=== PATIENT | female | born 1990 | race Caucasian/White ===

== ENCOUNTER 2017-06-18 07:23 | Inpatient (IN) | payer OTHER ==
[~2017-06-18] VITALS: Ht 162.6 cm; Wt 81.0 kg
[~2017-06-18 07:23] MED LIST: CLON0.5T3 PO; RISP3TAB12 PO
[2017-06-18] MEDS ORDERED: MoRPHine SULFATE 10 MG/ML CARP/VIAL IM STA (07:38)
--- NOTE | 2017-06-18 08:07 | DIAGNOSTIC IMAGING REPORT ---
LUMBAR SPINE 2 OR 3 VIEWS CLINICAL HISTORY: lower back pain COMPARISON STUDY: No previous studies for comparison. FINDINGS: No fractures or subluxations are visualized. There is a possible transitional vertebra. There is mild fecal retention. No destructive lesions are evident on conventional radiographic evaluation. IMPRESSION: 1. No fractures or subluxations identified 2. Mild fecal retention Electronically signed by: Anshul Sharpe M.D. 06/18/2017 8:06 AM Dictated Date/Time: 06/18/2017 8:05 AM
[2017-06-18] MEDS ORDERED: CALC500C70 PO (08:33)
[2017-06-18] MEDS ORDERED: LAMO100T16 PO (08:33)
[2017-06-18] MEDS ORDERED: CYCL10TA6 PO (08:33)
[2017-06-18] MEDS ORDERED: LISD50CA4 PO (08:33)
[2017-06-18] MEDS ORDERED: SYN50 PO (08:33)
[2017-06-18] MEDS ORDERED: SODIUM CHLORIDE 0.9% 1000ML 1,000 ML IV STA (08:46)
[2017-06-18 08:53] LABS: BASO % 0.1 %; BASO ABS # 0.02 K/uL (0-0.2); EOS % 0.4 %; EOS ABS # 0.06 K/uL (0-0.5); HEMATOCRIT 35.2 % (37-47); HEMOGLOBIN 11.5 g/dL (12.0-16.0); IG# 0.05 K/uL (0.00-0.02); LYMPH % 3.7 %; LYMPH ABS # 0.58 K/uL (1.2-3.4); MEAN CELL VOLUME 89.8 fL (80-100); MEAN CORPUSCULAR HEMOGLOBIN 29.3 pg (25-34); MEAN CORPUSCULAR HGB CONC 32.7 g/dl (32-36); MEAN PLATELET VOLUME 9.9 fL (7.4-10.4); MONO % 10.4 %; MONO ABS # 1.65 K/uL (0.11-0.59); NEUT % 85.1 %; NEUT ABS # 13.47 K/uL (1.4-6.5); PLATELET COUNT 274 K/uL (130-400); RED CELL DISTRIBUTION WIDTH CV 12.8 % (11.5-14.5); RED CELL DISTRIBUTION WIDTH SD 41.9 fL (36.4-46.3); WHITE BLOOD COUNT 15.83 K/uL (4.8-10.8)
[2017-06-18] MEDS ORDERED: OPTIRAY 320 IV PRN (09:00)
[2017-06-18 09:12] LABS: ALBUMIN 3.4 gm/dl (3.4-5.0); ALT/SGPT 15 U/L (12-78); BLOOD UREA NITROGEN 11 mg/dl (7-18); CARBON DIOXIDE 26 mmol/L (21-32); GLUCOSE 77 mg/dl (70-99); LIPASE 87 U/L (73-393); POTASSIUM 3.8 mmol/L (3.5-5.1); SODIUM 135 mmol/L (136-145)
[2017-06-18 09:15] LABS: ALKALINE PHOSPHATASE 56 U/L (45-117); AST/SGOT 11 U/L (15-37); TOTAL PROTEIN 7.3 gm/dl (6.4-8.2)
[2017-06-18] MEDS ORDERED: CEFTRIAXONE SOD INJ 1 GM ADDVIAL IV STA (10:00)
[2017-06-18] MEDS ORDERED: MoRPHine SULFATE 10 MG/ML CARP/VIAL IV STA (10:55)
--- NOTE | 2017-06-18 11:04 | DIAGNOSTIC IMAGING REPORT ---
CT ABD/PELVIS IV CONTRAST ONLY CLINICAL HISTORY: Severe right flank pain with urinary tract infection. COMPARISON STUDY: None. TECHNIQUE: Following the IV administration of mL of Optiray-320, CT scan of the abdomen and pelvis was performed from the lung bases to the proximal femurs. Images are reviewed in the axial, sagittal, and coronal planes. IV contrast was administered without complication. A dose lowering technique was utilized adhering to the principles of ALARA. CT DOSE: 1035.98 mGycm FINDINGS: Lower chest: The heart is normal in size and configuration, without pericardial effusion. The lung bases and pleural spaces are clear. Liver: No focal hepatic masses are visualized. There is minimal prominence the central intrahepatic ducts. The common bile duct is borderline dilated measuring 7 mm. Gallbladder: Unremarkable. Spleen: Normal in size and attenuation. Pancreas: Unremarkable. Adrenal glands: Unremarkable. Kidneys: There is a 5 mm right renal hypodensity likely representing a cyst. There is no significant hydronephrosis. There is mild uroepithelial enhancement most pronounced involving the right ureter. This is likely secondary to infection. Pelvic basin calcifications are felt to represent phleboliths. No ureteral calculi are visualized. There are no perinephric fluid collections. Bowel: There are no transition zones indicate bowel obstruction. There is mild fecal retention. There is no acute diverticulitis. There are no findings to indicate acute appendicitis. Peritoneum: There is a small amount of free pelvic fluid present. There is no free intraperitoneal air. Vasculature: The abdominal aorta is normal in course and caliber. Adenopathy: None. Pelvic viscera: There is an indwelling IUD. Skeletal structures: No destructive osseous lesions are seen. IMPRESSION: 1. No evidence of bowel obstruction. No evidence of free air 2. No evidence of acute appendicitis. No evidence of acute diverticulitis 3. Fecal retention 4. Mild uroepithelial enhancement most pronounced involving the right ureter. This likely is secondary to an upper tract infection. Clinical correlation follow-up is advocated 5. Mild prominence the central intrahepatic biliary ducts. Borderline dilatation of the common bile duct 6. Small amount of free fluid in the pelvis slightly greater than expected for physiologic free fluid 7. Indwelling IUD Electronically signed by: Anshul Sharpe M.D. 06/18/2017 11:02 AM Dictated Date/Time: 06/18/2017 10:53 AM
[2017-06-18 11:41] VITALS: O2SAT 96; Ht 162.6 cm; Wt 81.0 kg
[2017-06-18] MEDS ORDERED: HYDROmorphone INJ 1 MG/ML SYR IV STA (12:48)
--- NOTE | 2017-06-18 13:38 | EMERGENCY ROOM VISIT NOTE ---
History Report prepared by Randy: Romeo Adams Under the Supervision of: Dr. Dudley Soto D.O. First contact with patient: 07:31 Chief Complaint: BACK PAIN Stated Complaint: LOW BACK PAIN History of Present Illness The patient is a 26 year old female who presents to the Emergency Room with complaints of worsening right sided lower back pain that began on Thursday, 4 days ago. The patient states describes her pain as "severe." She notes that her pain started on Thursday while she was sitting at work. When she stood up from her desk after sitting for a long time she felt the pain worsen. Yesterday the pain was bilateral across both sides of her lower back, but today it is localized to the right side. Twisting, turning, and bending make her pain worse. She was seen by S yesterday, and was prescribed a muscle relaxer. This has not improved her symptoms. The patient denies any other headache, change in vision, fevers, chest pain, shortness of breath, nausea, vomiting, diarrhea, pain with urination, and melena. 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 A total of 10 systems reviewed and were otherwise negative. Past Medical & Surgical Medical Problems: (1) Bipolar disorder (2) Mitral valve prolapse Family History No pertinent family history Social History Smoking Status: Never Smoker Marital Status: single Housing Status: lives with roommate Current/Historical Medications Scheduled Calcium/Vitamin D (Os-Angel 500 Plus D), 1 TAB PO BID Lamotrigine (Lamictal), 100 MG PO DAILY Levonorgestrel (Iud) (Mirena), 20 MCG INT UTER UD Levothyroxine Sodium (Synthroid), 50 MCG PO DAILY Lisdexamfetamine Dimesylate (Vyvanse), 50 MG PO DAILY [place] Carbonate ([place] Carbonate), 300 MG PO QAM [place] Carbonate ([place] Carbonate), 600 MG PO HS Scheduled PRN Cyclobenzaprine Hcl (Flexeril), 10 MG PO Q8 PRN for Muscle Spasms Allergies Coded Allergies: No Known Allergies (Unverified , 10/04/15) Physical Exam Vital Signs Date Time Temp Pulse Resp B/P (MAP) Pulse Ox O2 Delivery O2 Flow Rate FiO2 06/18/17 13:08 102 20 117/71 95 06/18/17 11:41 96 Room Air 06/18/17 11:23 95 20 96/54 96 Room Air 06/18/17 09:35 86 20 104/57 100 06/18/17 07:27 36.8 106 22 112/73 100 Room Air Physical Exam GENERAL: Sitting up in bed, alert, well appearing, well nourished, moderate distress, walking around the room, holding his right lower back. EYE EXAM: normal conjunctiva. OROPHARYNX: no exudate, no erythema, lips, buccal mucosa, and tongue normal and mucous membranes are moist NECK: supple, no nuchal rigidity, no adenopathy, non-tender LUNGS: Clear to auscultation. Normal chest wall mechanics HEART: Tachycardic rate. no murmurs, S1 normal and S2 normal ABDOMEN: abdomen soft, non-tender, normo-active bowel sounds, no masses, no rebound or guarding. BACK: Back is symmetrical on inspection and there is no deformity, no CVA tenderness. SKIN: no rashes and no bruising. There is acute lower lumbar midline tenderness , tracking out to the right paraspinal region. UPPER EXTREMITIES: upper extremities are grossly normal. LOWER EXTREMITIES: No pitting edema. Flexion/Extension of the hip, knee, ankle, and EHL are 5/5 bilaterally. Patellar and Achilles reflexes are 2/4 bilaterally. Gross sensation is intact. She is able to ambulate. NEURO EXAM: Normal sensorium, cranial nerves II-XII grossly intact, normal speech, no gross weakness of arms, no gross weakness of legs. Medical Decision & Procedures ER Provider Diagnostic Interpretation: Radiology results as stated below per my review and the radiologist's interpretation: CT ABD/PELVIS IV CONTRAST ONLY CLINICAL HISTORY: Severe right flank pain with urinary tract infection. COMPARISON STUDY: None. TECHNIQUE: Following the IV administration of mL of Optiray-320, CT scan of the abdomen and pelvis was performed from the lung bases to the proximal femurs. Images are reviewed in the axial, sagittal, and coronal planes. IV contrast was administered without complication. A dose lowering technique was utilized adhering to the principles of ALARA. CT DOSE: 1035.98 mGycm FINDINGS: Lower chest: The heart is normal in size and configuration, without pericardial effusion. The lung bases and pleural spaces are clear. Liver: No focal hepatic masses are visualized. There is minimal prominence the central intrahepatic ducts. The common bile duct is borderline dilated measuring 7 mm. Gallbladder: Unremarkable. Spleen: Normal in size and attenuation. Pancreas: Unremarkable. Adrenal glands: Unremarkable. Kidneys: There is a 5 mm right renal hypodensity likely representing a cyst. There is no significant hydronephrosis. There is mild uroepithelial enhancement most pronounced involving the right ureter. This is likely secondary to infection. Pelvic basin calcifications are felt to represent phleboliths. No ureteral calculi are visualized. There are no perinephric fluid collections. Bowel: There are no transition zones indicate bowel obstruction. There is mild fecal retention. There is no acute diverticulitis. There are no findings to indicate acute appendicitis. Peritoneum: There is a small amount of free pelvic fluid present. There is no free intraperitoneal air. Vasculature: The abdominal aorta is normal in course and caliber. Adenopathy: None. Pelvic viscera: There is an indwelling IUD. Skeletal structures: No destructive osseous lesions are seen. IMPRESSION: 1. No evidence of bowel obstruction. No evidence of free air 2. No evidence of acute appendicitis. No evidence of acute diverticulitis 3. Fecal retention 4. Mild uroepithelial enhancement most pronounced involving the right ureter. This likely is secondary to an upper tract infection. Clinical correlation follow-up is advocated 5. Mild prominence the central intrahepatic biliary ducts. Borderline dilatation of the common bile duct 6. Small amount of free fluid in the pelvis slightly greater than expected for physiologic free fluid 7. Indwelling IUD Electronically signed by: Anshul Sharpe M.D. 06/18/2017 11:02 AM Dictated Date/Time: 06/18/2017 10:53 AM LUMBAR SPINE 2 OR 3 VIEWS CLINICAL HISTORY: lower back pain COMPARISON STUDY: No previous studies for comparison. FINDINGS: No fractures or subluxations are visualized. There is a possible transitional vertebra. There is mild fecal retention. No destructive lesions are evident on conventional radiographic evaluation. IMPRESSION: 1. No fractures or subluxations identified 2. Mild fecal retention Electronically signed by: Anshul Sharpe M.D. 06/18/2017 8:06 AM Dictated Date/Time: 06/18/2017 8:05 AM Laboratory Results 06/18/17 08:45 Red Blood Count 3.92, Mean Corpuscular Volume 89.8, Mean Corpuscular Hemoglobin 29.3, Mean Corpuscular Hemoglobin Concent 32.7, Mean Platelet Volume 9.9, Neutrophils (%) (Auto) 85.1, Lymphocytes (%) (Auto) 3.7, Monocytes (%) (Auto) 10.4, Eosinophils (%) (Auto) 0.4, Basophils (%) (Auto) 0.1, Neutrophils # (Auto ) 13.47, Lymphocytes # (Auto) 0.58, Monocytes # (Auto) 1.65, Eosinophils # (Auto ) 0.06, Basophils # (Auto) 0.02 06/18/17 08:45 Test 06/18/17 07:46 06/18/17 08:45 Urine Color YELLOW Urine Appearance TURBID (CLEAR) Urine pH 5.0 (4.5-7.5) Urine Specific [place] 1.019 (1.000-1.030) Urine Protein 2+ (NEG) Urine Glucose (UA) NEG (NEG) Urine Ketones NEG (NEG) Urine Occult Blood 3+ (NEG) Urine Nitrite POS (NEG) Urine Bilirubin NEG (NEG) Urine Urobilinogen NEG (NEG) Urine Leukocyte Esterase LARGE (NEG) Urine WBC (Auto) >30 /hpf (0-5) Urine RBC (Auto) >30 /hpf (0-4) Urine Hyaline Casts (Auto) 5-10 /lpf (0-5) Urine Epithelial Cells (Auto) >30 /lpf (0-5) Urine Bacteria (Auto) 2+ (NEG) Urine Yeast (Auto) (NONE PRSENT) Urine Test NEG (NEG) White Blood Count 15.83 K/uL (4.8-10.8) Red Blood Count 3.92 M/uL (4.2-5.4) Hemoglobin 11.5 g/dL (12.0-16.0) Hematocrit 35.2 % (37-47) Mean Corpuscular Volume 89.8 fL (80-100) Mean Corpuscular Hemoglobin 29.3 pg (25-34) Mean Corpuscular Hemoglobin Concent 32.7 g/dl (32-36) Platelet Count 274 K/uL (130-400) Mean Platelet Volume 9.9 fL (7.4-10.4) Neutrophils (%) (Auto) 85.1 % Lymphocytes (%) (Auto) 3.7 % Monocytes (%) (Auto) 10.4 % Eosinophils (%) (Auto) 0.4 % Basophils (%) (Auto) 0.1 % Neutrophils # (Auto) 13.47 K/uL (1.4-6.5) Lymphocytes # (Auto) 0.58 K/uL (1.2-3.4) Monocytes # (Auto) 1.65 K/uL (0.11-0.59) Eosinophils # (Auto) 0.06 K/uL (0-0.5) Basophils # (Auto) 0.02 K/uL (0-0.2) RDW Standard Deviation 41.9 fL (36.4-46.3) RDW Coefficient of Variation 12.8 % (11.5-14.5) Immature Granulocyte % (Auto) 0.3 % Immature Granulocyte # (Auto) 0.05 K/uL (0.00-0.02) Anion Gap 5.0 mmol/L (3-11) Est Creatinine Clear Calc Drug Dose 98.4 ml/min Estimated GFR () 103.0 Estimated GFR (Non- 88.9 BUN/Creatinine Ratio 11.9 (10-20) Calcium Level 9.0 mg/dl (8.5-10.1) Total Bilirubin 0.2 mg/dl (0.2-1) Direct Bilirubin < 0.1 mg/dl (0-0.2) Aspartate Amino Transf (AST/SGOT) 11 U/L (15-37) Alanine Aminotransferase (ALT/SGPT) 15 U/L (12-78) Alkaline Phosphatase 56 U/L (45-117) Total Protein 7.3 gm/dl (6.4-8.2) Albumin 3.4 gm/dl (3.4-5.0) Lipase 87 U/L (73-393) Laboratory results per my review. Medications Administered Medications (Trade) Dose Ordered Sig/Candis Route Start Time Stop Time Status Last Admin Dose Admin Morphine Sulfate (MoRPHine SULFATE INJ) 8 mg NOW STAT IM 06/18/17 07:38 06/18/17 07:40 DC 06/18/17 07:45 8 MG Sodium Chloride 1,000 ml @ 999 mls/hr Q1H1M STAT IV 06/18/17 08:46 06/18/17 09:46 DC 06/18/17 08:48 999 MLS/HR Ceftriaxone Sodium (Rocephin Inj) 1 gm NOW STAT IV 06/18/17 10:00 06/18/17 10:01 DC 06/18/17 10:38 1 GM Morphine Sulfate (MoRPHine SULFATE INJ) 8 mg NOW STAT IV 06/18/17 10:55 06/18/17 10:56 DC 06/18/17 11:03 8 MG Hydromorphone HCl (Dilaudid Inj) 1 mg NOW STAT IV 06/18/17 12:48 06/18/17 12:49 DC 06/18/17 13:09 1 MG ED Course ED COURSE: Vital signs were reviewed and showed tachycardic vitals. The patients medical record was reviewed The above diagnostic studies were performed and reviewed. ED treatments and interventions as stated above. 0733: The patient was evaluated in room A11B. A complete history and physical examination was performed. 0738: Ordered Morphine Sulfate 8 mg 0846: Ordered Sodium Chloride 1000 mL @ 999 mL/hr IV. 1000: Ordered Rocephin 1 gm IV. 1055: Ordered Morphine Sulfate 8 mg IV. 1116: I discussed the case with Maida SEAMAN Hospitalist. She will evaluate the patient for further treatment. 1120: Upon reevaluation, the patient is resting.I discussed my findings with the patient and she understands and agrees with the treatment plan. Based on the patients age, coexisting illnesses, exam and lab findings the decision to treat as an inpatient was made. The patient remained stable while under my care. The patient will be evaluated for further management. Medical Decision Differential diagnoses includes but is not limited to lumbar radiculopathy, kidney stone, muscle strain, facture, cauda equina, mass, and disc herniation. Patient is a 26-year-old female who presents the ER for severe lower back pain. It is worsened with twisting turning and bending. She denies any urinary symptoms. X-rays were initially unremarkable but UA did show a clear UTI. Following this blood work was obtained. Leukocytosis of 16,000. BMP along with LFTs, bilirubin lipase was unremarkable. was negative. CT shows pyelonephritis. Patient was given IV antibiotics and multiple doses of IV narcotics. She was updated at bedside. She was admitted to internal medicine following 3 doses of IV narcotics. Medication Reconcilliation Current Medication List: was personally reviewed by me Blood Pressure Screening Patient's blood pressure: Normal blood pressure Consults Time Called: 1112 Consulting Physician: Maida SEAMAN Hospitalist Returned Call: [phone] I discussed the case with Maida SEAMAN Hospitalist. She will evaluate the patient for further treatment. Impression Primary Impression: Pyelonephritis Scribe Attestation The scribe's documentation has been prepared under my direction and personally reviewed by me in its entirety. I confirm that the note above accurately reflects all work, treatment, procedures, and medical decision making performed by me. Departure Information Dispostion Being Evaluated By Hospitalist Referrals No Doctor, Assigned (PCP) Patient Instructions [facility]
--- NOTE | 2017-06-18 13:58 | History and Physical ---
History & Physical Date & Time of Service: Jun 18, 2017 at 13:55 Chief Complaint: Low Back Pain Primary Care Physician: Services,[facility] History of Present Illness Ms. Kyle Hayes is a 26-year-old woman presents emergency department with complaints of right-sided lower back pain. Patient was in her usual state of health until 4 days ago, when she developed back pain of gradual onset and has been progressively worsening. Initially, pain was predominant in the lower with no laterality and a 3 out of 10 severity but gradually worsening. She sought out medical attention at [facility] services was diagnosed with muscle skeletal pain and prescribed cyclobenzaprine. She was also referred to physical therapy. Despite compliance pain worsen to a 10 out of 10 in severity. She denies fevers, chills, nausea, vomiting. No sick contact or recent travel. She is sexually active and dick mutually monogamous relationship. Last STI screening was negative and she does not endorse any vaginal discharge or pain. In the emergency department, vitals are stable the labs show a significant leukocytosis. CT imaging confirms presence of a pyelonephritis. . Past Medical/Surgical History Medical Problems: (1) Bipolar disorder (2) Mitral valve prolapse (3) Mood disorder (4) Nausea (5) Unsteady (6) Weakness Family History No pertinent family history Social History Smoking Status: Never Smoker Marital Status: single Allergies Coded Allergies: No Known Allergies (Unverified , 10/04/15) Home Medications Scheduled Calcium/Vitamin D (Os-Angel 500 Plus D), 1 TAB PO BID Lamotrigine (Lamictal), 100 MG PO DAILY Levonorgestrel (Iud) (Mirena), 20 MCG INT UTER UD Levothyroxine Sodium (Synthroid), 50 MCG PO DAILY Lisdexamfetamine Dimesylate (Vyvanse), 50 MG PO DAILY [place] Carbonate ([place] Carbonate), 300 MG PO QAM [place] Carbonate ([place] Carbonate), 600 MG PO HS Scheduled PRN Cyclobenzaprine Hcl (Flexeril), 10 MG PO Q8 PRN for Muscle Spasms Physical Exam Vital Signs Date Time Temp Pulse Resp B/P (MAP) Pulse Ox O2 Delivery O2 Flow Rate FiO2 06/18/17 13:08 102 20 117/71 95 06/18/17 11:41 96 Room Air 06/18/17 11:23 95 20 96/54 96 Room Air 06/18/17 09:35 86 20 104/57 100 06/18/17 07:27 36.8 106 22 112/73 100 Room Air General Appearance: + mild distress Head: normocephalic, atraumatic Eyes: PERRL, EOMI Neck: supple, no adenopathy Respiratory/Chest: chest non-tender, lungs clear, normal breath sounds, no respiratory distress Cardiovascular: regular rate, rhythm Abdomen/GI: normal bowel sounds, non tender, soft Back: + right CVA tenderness Extremities/Musculoskelatal: normal inspection 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, no motor/sensory deficits Skin: normal color Diagnostics Laboratory Results Results Past 24 Hours Test 06/18/17 07:46 06/18/17 08:45 Range/Units Urine Color YELLOW Urine Appearance TURBID CLEAR Urine pH 5.0 4.5-7.5 Urine Specific [place] 1.019 1.000-1.030 Urine Protein 2+ NEG Urine Glucose (UA) NEG NEG Urine Ketones NEG NEG Urine Occult Blood 3+ NEG Urine Nitrite POS NEG Urine Bilirubin NEG NEG Urine Urobilinogen NEG NEG Urine Leukocyte Esterase LARGE NEG Urine WBC (Auto) >30 0-5 /hpf Urine RBC (Auto) >30 0-4 /hpf Urine Hyaline Casts (Auto) 5-10 0-5 /lpf Urine Epithelial Cells (Auto) >30 0-5 /lpf Urine Bacteria (Auto) 2+ NEG Urine Yeast (Auto) NONE PRSENT Urine Test NEG NEG White Blood Count 15.83 4.8-10.8 K/uL Red Blood Count 3.92 4.2-5.4 M/uL Hemoglobin 11.5 12.0-16.0 g/dL Hematocrit 35.2 37-47 % Mean Corpuscular Volume 89.8 80-100 fL Mean Corpuscular Hemoglobin 29.3 25-34 pg Mean Corpuscular Hemoglobin Concent 32.7 32-36 g/dl Platelet Count 274 130-400 K/uL Mean Platelet Volume 9.9 7.4-10.4 fL Neutrophils (%) (Auto) 85.1 % Lymphocytes (%) (Auto) 3.7 % Monocytes (%) (Auto) 10.4 % Eosinophils (%) (Auto) 0.4 % Basophils (%) (Auto) 0.1 % Neutrophils # (Auto) 13.47 1.4-6.5 K/uL Lymphocytes # (Auto) 0.58 1.2-3.4 K/uL Monocytes # (Auto) 1.65 0.11-0.59 K/uL Eosinophils # (Auto) 0.06 0-0.5 K/uL Basophils # (Auto) 0.02 0-0.2 K/uL RDW Standard Deviation 41.9 36.4-46.3 fL RDW Coefficient of Variation 12.8 11.5-14.5 % Immature Granulocyte % (Auto) 0.3 % Immature Granulocyte # (Auto) 0.05 0.00-0.02 K/uL Sodium Level 135 136-145 mmol/L Potassium Level 3.8 3.5-5.1 mmol/L Chloride Level 103 98-107 mmol/L Carbon Dioxide Level 26 21-32 mmol/L Anion Gap 5.0 3-11 mmol/L Blood Urea Nitrogen 11 7-18 mg/dl Creatinine 0.90 0.60-1.20 mg/dl Est Creatinine Clear Calc Drug Dose 98.4 ml/min Estimated GFR () 103.0 Estimated GFR (Non- 88.9 BUN/Creatinine Ratio 11.9 10-20 Random Glucose 77 70-99 mg/dl Calcium Level 9.0 8.5-10.1 mg/dl Total Bilirubin 0.2 0.2-1 mg/dl Direct Bilirubin < 0.1 0-0.2 mg/dl Aspartate Amino Transf (AST/SGOT) 11 15-37 U/L Alanine Aminotransferase (ALT/SGPT) 15 12-78 U/L Alkaline Phosphatase 56 45-117 U/L Total Protein 7.3 6.4-8.2 gm/dl Albumin 3.4 3.4-5.0 gm/dl Lipase 87 73-393 U/L Diagnostic Radiology CT A/P with IV contrast IMPRESSION: 1. No evidence of bowel obstruction. No evidence of free air 2. No evidence of acute appendicitis. No evidence of acute diverticulitis 3. Fecal retention 4. Mild uroepithelial enhancement most pronounced involving the right ureter. This likely is secondary to an upper tract infection. Clinical correlation follow-up is advocated 5. Mild prominence the central intrahepatic biliary ducts. Borderline dilatation of the common bile duct 6. Small amount of free fluid in the pelvis slightly greater than expected for physiologic free fluid 7. Indwelling IUD Impression Assessment and Plan K.A.P 26.F admitted for right pyelonephritis confirmed by lab and imaging. Pain has improved since the admission and vital signs are stable. She is to continue intravenous hydration and antibiotic therapy. Admit : Med/Surg VS qShift 1) Pyelonephritis, right - intravenous hydration: NS @ 125cc/hr for total 3 liters - ceftriaxone 1gm IV q24H; transition to oral formulation withn 24 to 48 hours - acetaminophen 650mg PO q6H PRN for fever 2) Hx of Bipolar D/o - stable; no active issues - resume lithium 3) Hx of Hypothyroidism - stable; no active issues - resume levothyroxine 50 mcg PO qAM Diet: Regular Activity: ad lb Precautions: Standard Code: FULL Advanced Directives Existing Living Will: No Existing Power of Banking Analyst: No Resuscitation Status VTE Prophylaxis Will order VTE Prophylaxis: Yes
[2017-06-18] MEDS ORDERED: LEVONORGESTREL INT UTER SCH (15:00)
[2017-06-18] MEDS ORDERED: LEVO1IUD2 INT UTER (15:47)
[2017-06-18] MEDS ORDERED: LITH300T2 PO ×2 (15:47)
[2017-06-18] MEDS ORDERED: KETOROLAC TROMETHAMINE 15 MG/ML VIAL ONE (15:48)
[2017-06-18 16:00] VITALS: BP 127/84; PULSE 120; TEMP 37.5; O2SAT 97
[2017-06-18] MEDS: ACETAMINOPHEN 325 MG TAB PO PRN ×2 (16:43→22:27)
[2017-06-18] MEDS: SODIUM CHLORIDE 0.9% 1000ML 1,000 ML IV SCH (17:01)
[2017-06-18] MEDS ORDERED: MoRPHine SULFATE 2 MG/ML CARP ONE (18:21)
[2017-06-18] MEDS ORDERED: MoRPHine SULFATE 2 MG/ML CARP IV ONE ×2 (18:30→22:30)
[2017-06-18] MEDS ORDERED: NURSING VERBAL MED ORDER ONE ×3 (18:30→23:30)
[2017-06-18] MEDS: MoRPHine SULFATE 2 MG/ML CARP IV PRN (21:12)
[2017-06-18] MEDS: LAMOTRIGINE PO SCH ×2 (21:15)
[2017-06-18] MEDS: LITHIUM CARBONATE 300 MG TAB PO SCH (21:15)
[2017-06-18] MEDS ORDERED: NURSING VERBAL MED ORDER STA (22:06)
[2017-06-18 23:15] VITALS: BP 114/77; PULSE 107; TEMP 37.5; O2SAT 100
[2017-06-19] MEDS ORDERED: VYVANSE: ORDER AWAITING ACTION SCH
[2017-06-19] MEDS: SODIUM CHLORIDE 0.9% 1000ML 1,000 ML IV SCH ×2 (00:59→09:15)
[2017-06-19] MEDS: MoRPHine SULFATE 2 MG/ML CARP IV PRN ×3 (04:09→14:38)
[2017-06-19] MEDS: ACETAMINOPHEN 325 MG TAB PO PRN ×3 (05:24→22:29)
[2017-06-19] MEDS: LEVOTHYROXINE 50 MCG TAB PO SCH (05:25)
[2017-06-19 08:07] VITALS: BP 94/55; PULSE 89; TEMP 36.8; O2SAT 97
[2017-06-19] MEDS: LITHIUM CARBONATE 300 MG TAB PO SCH ×2 (09:00→21:33)
[2017-06-19] MEDS: LAMOTRIGINE PO SCH ×2 (09:00)
[2017-06-19] MEDS: CEFTRIAXONE SOD INJ 1 GM in DEXTROSE 5% ADD-VANTAGE 50ML 50 ML IV SCH (09:15)
[2017-06-19] MEDS: VYVANSE PO SCH (10:21)
[2017-06-19] MEDS: NON-FORMULARY PATIENT'S OWN MED PO SCH (10:21)
[2017-06-19] MEDS ORDERED: HYDROmorphone INJ 2 MG/ML SYR/VIAL IV ONE (11:15)
[2017-06-19] MEDS ORDERED: NURSING VERBAL MED ORDER ONE ×3 (11:15→18:30)
[2017-06-19] MEDS ORDERED: NURSING VERBAL MED ORDER STA (13:28)
[2017-06-19] MEDS ORDERED: ONDANSETRON INJ 2 MG/ML 2 ML VIAL IV ONE (13:45)
[2017-06-19 15:21] VITALS: BP 119/81; PULSE 111; TEMP 38.8; O2SAT 100
[2017-06-19] MEDS ORDERED: LACTATED RINGER'S 1000ML 1,000 ML IV STA (16:52)
[2017-06-19] MEDS: MoRPHine SULFATE 4 MG/ML 1 ML CARP\\VIAL IV PRN ×2 (16:55→22:20)
--- NOTE | 2017-06-19 16:59 | Progress Note ---
Subjective Date of Service: Jun 19, 2017. Subjective Pt evaluation today including: conversation w/ patient 26 yo female presents with right side pain. Patient reports no significant improvement today. Patient reports subjective fever, chills, nausea, vomiting. Patient denies dysuria, today. Problem List Medical Problems: (1) Pyelonephritis Status: Acute (2) Weakness Status: Acute Review of Systems Constitutional: No fever, No chills Eyes: No worsening of vision ENT: No hearing loss Respiratory: No cough Cardiac: No chest pain Abdomen: + pain Musculoskeletal: No joint pain Neurologic: No memory loss Psychiatric: No depression symptoms Endo: No fatigue Skin: No rash All Other Systems: Reviewed and Negative Medications Current Inpatient Medications Medications (Trade) Dose Ordered Sig/Candis Route Start Time Stop Time Status Last Admin Dose Admin Ioversol (Optiray 320) 125 ml UD PRN IV 06/18/17 09:00 06/22/17 08:59 Ceftriaxone Sodium 1 gm/ Dextrose 50 ml @ 100 mls/hr Q24H IV 06/19/17 10:00 06/23/17 09:59 06/21/17 10:17 100 MLS/HR Acetaminophen (Tylenol Tab) 650 mg Q6H PRN PO 06/18/17 14:45 07/18/17 14:44 06/20/17 12:26 650 MG Levothyroxine Sodium (Synthroid Tab) 50 mcg DAILYBB PO 06/19/17 06:30 07/19/17 06:29 06/21/17 06:30 50 MCG [place] Carbonate ([place] Carbonate Tab) 300 mg QAM PO 06/19/17 09:00 07/19/17 08:59 06/21/17 07:55 300 MG [place] Carbonate ([place] Carbonate Tab) 600 mg HS PO 06/18/17 21:00 07/18/17 20:59 06/20/17 20:11 600 MG Lamotrigine (Lamictal Tab) 250 mg DAILY PO 06/19/17 09:00 07/19/17 08:59 06/21/17 07:55 250 MG Non-Formulary Medication (Patient'S Own Controlled Med) 1 ea DAILY PO 06/19/17 09:00 07/03/17 08:59 06/19/17 10:21 1 EA Non-Formulary Medication (Non-Formulary Patient'S Own Med) 1 ea DAILY PO 06/19/17 09:00 07/19/17 08:59 06/21/17 07:55 1 EA Lactated Ringer's 1,000 ml @ 150 mls/hr Q6H40M IV 06/20/17 04:45 07/20/17 04:44 06/21/17 08:47 150 MLS/HR Morphine Sulfate (MoRPHine SULFATE INJ) 2 mg Q2H PRN IV 06/20/17 18:00 07/04/17 17:59 06/21/17 07:56 2 MG Docusate Sodium (coLACE CAP) 100 mg BID PO 06/20/17 18:00 07/20/17 17:59 06/21/17 07:55 100 MG Ondansetron HCl (Zofran Inj) 4 mg Q6H PRN IV 06/20/17 23:00 07/20/17 22:59 06/20/17 23:28 4 MG Objective Vital Signs Date Time Temp Pulse Resp B/P (MAP) Pulse Ox O2 Delivery O2 Flow Rate FiO2 06/19/17 15:21 38.8 111 17 119/81 (94) 100 Room Air 06/19/17 08:07 36.8 89 20 94/55 (68) 97 06/19/17 08:00 Room Air 06/18/17 23:20 Room Air 06/18/17 23:15 37.5 107 18 114/77 (89) 100 Room Air Physical Exam General Appearance: WD/WN, no apparent distress Eyes: normal inspection ENT: normal ENT inspection Neck: supple, no adenopathy Respiratory/Chest: chest non-tender, lungs clear, normal breath sounds Cardiovascular: regular rate, rhythm, no edema Abdomen: normal bowel sounds, non tender, soft, + pertinent finding (positive costovertebral tenderness) Extremities: normal range of motion, non-tender Neurologic/Psychiatric: alert, oriented x 3 Skin: normal color Lymphatic: no adenopathy Assessment and Plan K.A.P 26.F admitted for right pyelonephritis confirmed by lab and imaging. Pain has improved since the admission and vital signs are stable. She is to continue intravenous hydration and antibiotic therapy. Admit : Med/Surg VS qShift 1) Pyelonephritis, right -Will continue IV antibiotics No urine cultures were ordered. thankfully was able to obtain Culture from [facility] from admission -await culture and sensitivities -will increase IVF to 200 ml for 2 liters as patient remains tachycardic - ceftriaxone 1gm IV q24H; - acetaminophen 650mg PO q6H PRN for fever 2) Hx of Bipolar D/o - stable; no active issues - resume lithium 3) Hx of Hypothyroidism - stable; no active issues - resume levothyroxine 50 mcg PO qAM Diet: Regular Activity: ad lb Precautions: Standard Code: FULL Continued [facility] stay due to: multiple IV medications needed Discharge planning: home
[2017-06-19] MEDS: LACTATED RINGER'S 1000ML 1,000 ML IV SCH ×2 (18:35→23:45)
[2017-06-20 00:31] VITALS: BP 135/85; PULSE 89; TEMP 37.4; O2SAT 97
[2017-06-20] MEDS: MoRPHine SULFATE 4 MG/ML 1 ML CARP\\VIAL IV PRN ×6 (01:42→16:11)
[2017-06-20] MEDS: LACTATED RINGER'S 1000ML 1,000 ML IV SCH ×3 (05:12→19:33)
[2017-06-20] MEDS: LEVOTHYROXINE 50 MCG TAB PO SCH (06:30)
[2017-06-20 07:21] VITALS: BP 105/62; PULSE 101; TEMP 37.7; O2SAT 95
[2017-06-20] MEDS: VYVANSE PO SCH (09:00)
[2017-06-20] MEDS: LITHIUM CARBONATE 300 MG TAB PO SCH ×2 (09:02→20:11)
[2017-06-20] MEDS: LAMOTRIGINE PO SCH ×2 (09:02)
[2017-06-20] MEDS: NON-FORMULARY PATIENT'S OWN MED PO SCH (09:14)
[2017-06-20] MEDS: CEFTRIAXONE SOD INJ 1 GM in DEXTROSE 5% ADD-VANTAGE 50ML 50 ML IV SCH (09:15)
[2017-06-20 12:22] LABS: BASO % 0.2 %; BASO ABS # 0.02 K/uL (0-0.2); EOS % 1.3 %; EOS ABS # 0.14 K/uL (0-0.5); HEMATOCRIT 33.1 % (37-47); HEMOGLOBIN 11.7 g/dL (12.0-16.0); IG# 0.03 K/uL (0.00-0.02); LYMPH % 13.9 %; LYMPH ABS # 1.54 K/uL (1.2-3.4); MEAN CELL VOLUME 88.5 fL (80-100); MEAN CORPUSCULAR HEMOGLOBIN 31.3 pg (25-34); MEAN CORPUSCULAR HGB CONC 35.3 g/dl (32-36); MEAN PLATELET VOLUME 9.6 fL (7.4-10.4); MONO % 13.1 %; MONO ABS # 1.45 K/uL (0.11-0.59); NEUT % 71.2 %; NEUT ABS # 7.87 K/uL (1.4-6.5); PLATELET COUNT 300 K/uL (130-400); RED CELL DISTRIBUTION WIDTH CV 12.4 % (11.5-14.5); WHITE BLOOD COUNT 11.05 K/uL (4.8-10.8)
[2017-06-20] MEDS: ACETAMINOPHEN 325 MG TAB PO PRN (12:26)
[2017-06-20 12:41] LABS: CALCIUM 9.1 mg/dl (8.5-10.1); CREATININE 0.89 mg/dl (0.60-1.20); POTASSIUM 3.5 mmol/L (3.5-5.1)
[2017-06-20 15:34] VITALS: BP 136/81; PULSE 89; TEMP 36.8; O2SAT 94
[2017-06-20 16:00] VITALS: O2SAT 94
--- NOTE | 2017-06-20 17:09 | Progress Note ---
Subjective Date of Service: Jun 20, 2017. Subjective Pt evaluation today including: conversation w/ patient Patient reports improved pain. It is now 6 to 7. Patient reports no longer having chills, but she did have a fever last night. Patient denies nausea, vomiting. Problem List Medical Problems: (1) Pyelonephritis Status: Acute (2) Weakness Status: Acute Review of Systems Constitutional: No fever, No chills Eyes: No worsening of vision ENT: No hearing loss Respiratory: No cough Cardiac: No chest pain Abdomen: No pain Musculoskeletal: No joint pain Neurologic: No memory loss Psychiatric: No depression symptoms Heme: No abnormal bleeding/bruising Endo: No fatigue Skin: No rash All Other Systems: Reviewed and Negative Objective Vital Signs Date Time Temp Pulse Resp B/P (MAP) Pulse Ox O2 Delivery O2 Flow Rate FiO2 06/20/17 15:34 36.8 89 16 136/81 (99) 94 Room Air 06/20/17 08:00 Room Air 06/20/17 07:21 37.7 101 20 105/62 (76) 95 Room Air 06/20/17 00:31 37.4 89 20 135/85 (102) 97 Room Air 06/20/17 00:00 Room Air Physical Exam General Appearance: WD/WN, no apparent distress ENT: normal ENT inspection Neck: supple, no adenopathy Respiratory/Chest: chest non-tender, lungs clear, normal breath sounds Cardiovascular: regular rate, rhythm, no edema Abdomen: normal bowel sounds, non tender, soft, + pertinent finding (positive costovertebral tenderness) Extremities: normal range of motion, non-tender Neurologic/Psychiatric: alert, oriented x 3 Skin: normal color Lymphatic: no adenopathy Laboratory Results Last 24 Hours Test 06/20/17 12:09 White Blood Count 11.05 K/uL Red Blood Count 3.74 M/uL Hemoglobin 11.7 g/dL Hematocrit 33.1 % Mean Corpuscular Volume 88.5 fL Mean Corpuscular Hemoglobin 31.3 pg Mean Corpuscular Hemoglobin Concent 35.3 g/dl Platelet Count 300 K/uL Mean Platelet Volume 9.6 fL Neutrophils (%) (Auto) 71.2 % Lymphocytes (%) (Auto) 13.9 % Monocytes (%) (Auto) 13.1 % Eosinophils (%) (Auto) 1.3 % Basophils (%) (Auto) 0.2 % Neutrophils # (Auto) 7.87 K/uL Lymphocytes # (Auto) 1.54 K/uL Monocytes # (Auto) 1.45 K/uL Eosinophils # (Auto) 0.14 K/uL Basophils # (Auto) 0.02 K/uL RDW Standard Deviation 40.0 fL RDW Coefficient of Variation 12.4 % Immature Granulocyte % (Auto) 0.3 % Immature Granulocyte # (Auto) 0.03 K/uL Sodium Level 135 mmol/L Potassium Level 3.5 mmol/L Chloride Level 99 mmol/L Carbon Dioxide Level 30 mmol/L Anion Gap 6.0 mmol/L Blood Urea Nitrogen 6 mg/dl Creatinine 0.89 mg/dl Est Creatinine Clear Calc Drug Dose 99.5 ml/min Estimated GFR () 104.4 Estimated GFR (Non- 90.1 BUN/Creatinine Ratio 6.9 Random Glucose 105 mg/dl Calcium Level 9.1 mg/dl Assessment and Plan K.A.P 26.F admitted for right pyelonephritis confirmed by lab and imaging. Pain has improved since the admission and vital signs are stable. She is to continue intravenous hydration and antibiotic therapy. Admit : Med/Surg VS qShift 1) Pyelonephritis, right with sepsis -Will continue IV antibiotics -await culture and sensitivities -Patient is now on 150 ml per hour. - ceftriaxone 1gm IV q24H; - acetaminophen 650mg PO q6H PRN for fever -will titrate to PO antibiotics once sensitivities are known -Pain is better controlled but still requires pain medicine 2) Hx of Bipolar D/o - stable; no active issues - resume lithium 3) Hx of Hypothyroidism - stable; no active issues - resume levothyroxine 50 mcg PO qAM Diet: Regular Activity: ad lb Precautions: Standard Code: FULL
[2017-06-20] MEDS ORDERED: NURSING VERBAL MED ORDER ONE (17:45)
[2017-06-20] MEDS ORDERED: ONDANSETRON INJ 2 MG/ML 2 ML VIAL IV ONE (18:00)
[2017-06-20] MEDS: MoRPHine SULFATE 2 MG/ML CARP IV PRN ×2 (19:32→23:52)
[2017-06-20] MEDS: DOCUSATE SODIUM 100 MG CAP PO SCH (20:11)
[2017-06-20] MEDS ORDERED: ONDANSETRON INJ 2 MG/ML 2 ML VIAL IV PRN (23:00)
[2017-06-21] VITALS: BP 153/87; PULSE 80; TEMP 37; O2SAT 98
[2017-06-21] MEDS: LACTATED RINGER'S 1000ML 1,000 ML IV SCH ×2 (02:10→08:47)
[2017-06-21] MEDS: LEVOTHYROXINE 50 MCG TAB PO SCH (06:30)
[2017-06-21 07:30] LABS: BASO % 0.3 %; BASO ABS # 0.02 K/uL (0-0.2); EOS % 3.2 %; EOS ABS # 0.25 K/uL (0-0.5); HEMATOCRIT 34.1 % (37-47); HEMOGLOBIN 11.2 g/dL (12.0-16.0); IG# 0.02 K/uL (0.00-0.02); LYMPH % 14.6 %; LYMPH ABS # 1.14 K/uL (1.2-3.4); MEAN CELL VOLUME 87.4 fL (80-100); MEAN CORPUSCULAR HEMOGLOBIN 28.7 pg (25-34); MEAN CORPUSCULAR HGB CONC 32.8 g/dl (32-36); MEAN PLATELET VOLUME 9.6 fL (7.4-10.4); MONO ABS # 0.94 K/uL (0.11-0.59); NEUT % 69.6 %; NEUT ABS # 5.46 K/uL (1.4-6.5); PLATELET COUNT 343 K/uL (130-400); RED CELL DISTRIBUTION WIDTH CV 12.3 % (11.5-14.5); RED CELL DISTRIBUTION WIDTH SD 39.2 fL (36.4-46.3); WHITE BLOOD COUNT 7.83 K/uL (4.8-10.8)
[2017-06-21] MEDS: LAMOTRIGINE PO SCH ×2 (07:55)
[2017-06-21] MEDS: NON-FORMULARY PATIENT'S OWN MED PO SCH (07:55)
[2017-06-21] MEDS: LITHIUM CARBONATE 300 MG TAB PO SCH ×2 (07:55→20:19)
[2017-06-21] MEDS: DOCUSATE SODIUM 100 MG CAP PO SCH (07:55)
[2017-06-21] MEDS: VYVANSE PO SCH (07:55)
[2017-06-21] MEDS: MoRPHine SULFATE 2 MG/ML CARP IV PRN (07:56)
[2017-06-21 08:01] LABS: CALCIUM 8.9 mg/dl (8.5-10.1); CREATININE 0.81 mg/dl (0.60-1.20); POTASSIUM 3.9 mmol/L (3.5-5.1)
[2017-06-21 08:07] VITALS: BP 108/71; PULSE 70; TEMP 36.7; O2SAT 99
[2017-06-21] MEDS: CEFTRIAXONE SOD INJ 1 GM in DEXTROSE 5% ADD-VANTAGE 50ML 50 ML IV SCH (10:17)
[2017-06-21 16:10] VITALS: BP 107/71; PULSE 85; TEMP 36.5; O2SAT 100
--- NOTE | 2017-06-21 23:20 | Progress Note ---
Subjective Date of Service: Jun 21, 2017. Subjective Pt evaluation today including: conversation w/ patient Patient continues to have moderate pain in her back. Patient states the pain is sharp and 4-5 out of 10 today. It has gradually improved from each day. Patient also continues to be constipated, has not had a bowel movement since Thursday Problem List Medical Problems: (1) Pyelonephritis Status: Acute (2) Weakness Status: Acute Review of Systems Constitutional: No fever, No chills Eyes: No worsening of vision ENT: No hearing loss Respiratory: No cough Cardiac: No chest pain Abdomen: + constipation, No pain Musculoskeletal: No joint pain Neurologic: No memory loss Psychiatric: No depression symptoms Heme: No abnormal bleeding/bruising Endo: No fatigue Skin: No rash All Other Systems: Reviewed and Negative Objective Vital Signs Date Time Temp Pulse Resp B/P (MAP) Pulse Ox O2 Delivery O2 Flow Rate FiO2 06/21/17 16:19 Room Air 06/21/17 16:10 36.5 85 20 107/71 (83) 100 Room Air 06/21/17 08:07 36.7 70 20 108/71 (83) 99 06/21/17 08:00 Room Air 06/21/17 00:00 Room Air 06/21/17 00:00 37.0 80 20 153/87 (109) 98 Room Air Physical Exam Comments: General Appearance: WD/WN, no apparent distress ENT: normal ENT inspection Neck: supple, no adenopathy Respiratory/Chest: chest non-tender, lungs clear, normal breath sounds Cardiovascular: regular rate, rhythm, no edema Abdomen: normal bowel sounds, non tender, soft, + pertinent finding (positive costovertebral tenderness), pain is improved however Extremities: normal range of motion, non-tender Neurologic/Psychiatric: alert, oriented x 3 Skin: normal color Lymphatic: no adenopathy Laboratory Results Last 24 Hours Test 06/21/17 07:01 White Blood Count 7.83 K/uL Red Blood Count 3.90 M/uL Hemoglobin 11.2 g/dL Hematocrit 34.1 % Mean Corpuscular Volume 87.4 fL Mean Corpuscular Hemoglobin 28.7 pg Mean Corpuscular Hemoglobin Concent 32.8 g/dl Platelet Count 343 K/uL Mean Platelet Volume 9.6 fL Neutrophils (%) (Auto) 69.6 % Lymphocytes (%) (Auto) 14.6 % Monocytes (%) (Auto) 12.0 % Eosinophils (%) (Auto) 3.2 % Basophils (%) (Auto) 0.3 % Neutrophils # (Auto) 5.46 K/uL Lymphocytes # (Auto) 1.14 K/uL Monocytes # (Auto) 0.94 K/uL Eosinophils # (Auto) 0.25 K/uL Basophils # (Auto) 0.02 K/uL RDW Standard Deviation 39.2 fL RDW Coefficient of Variation 12.3 % Immature Granulocyte % (Auto) 0.3 % Immature Granulocyte # (Auto) 0.02 K/uL Sodium Level 136 mmol/L Potassium Level 3.9 mmol/L Chloride Level 102 mmol/L Carbon Dioxide Level 29 mmol/L Anion Gap 5.0 mmol/L Blood Urea Nitrogen 8 mg/dl Creatinine 0.81 mg/dl Est Creatinine Clear Calc Drug Dose 109.3 ml/min Estimated GFR () 117.0 Estimated GFR (Non- 100.9 BUN/Creatinine Ratio 9.5 Random Glucose 91 mg/dl Calcium Level 8.9 mg/dl Assessment and Plan K.A.P 26.F admitted for right pyelonephritis confirmed by lab and imaging. Pain has improved since the admission and vital signs are stable. She is to continue intravenous hydration and antibiotic therapy. Admit : Med/Surg VS qShift 1) Pyelonephritis, right with sepsis -Will continue IV antibiotics -culture shows pansensitive e. coli -lester convert to po tomorrow in AM once patient is 49 afebrile -Patient no longer on IV fluids as she is recommended to ambulate more - ceftriaxone 1gm IV q24H; - acetaminophen 650mg PO q6H PRN for fever -Pain is better controlled -will start oral cipro in AM -will hold morphine 2)Constipation recommend ambulating stopping morphine or any meds that can worsen constipation 3) Hx of Bipolar D/o - stable; no active issues - resume lithium 4) Hx of Hypothyroidism - stable; no active issues - resume levothyroxine 50 mcg PO qAM Diet: Regular Activity: ad lb Precautions: Standard Code: FULL Continued [facility] stay due to: multiple IV medications needed Discharge planning: home
[2017-06-22 00:07] VITALS: BP 111/78; PULSE 86; TEMP 36.9; O2SAT 100
[2017-06-22] MEDS: LEVOTHYROXINE 50 MCG TAB PO SCH (06:16)
[2017-06-22 07:12] VITALS: BP 107/71; PULSE 69; TEMP 36.9; O2SAT 97
[2017-06-22] MEDS: LITHIUM CARBONATE 300 MG TAB PO SCH (07:48)
[2017-06-22] MEDS: LAMOTRIGINE PO SCH ×2 (07:48)
[2017-06-22] MEDS: NON-FORMULARY PATIENT'S OWN MED PO SCH (07:48)
[2017-06-22] MEDS: VYVANSE PO SCH (07:48)
[2017-06-22 08:00] VITALS: O2SAT 97
[2017-06-22] MEDS ORDERED: CIPROFLOXACIN 500 MG TAB PO SCH (09:00)
[2017-06-22] MEDS ORDERED: CPR500 PO (10:42)
--- NOTE | 2017-06-22 10:46 | Discharge Instructions ---
Discharge Instructions Date of Service Jun 22, 2017. Admission Reason for Admission: Pyelonephritis Discharge Discharge Diagnosis / Problem: Right sided pyelonephritis Discharge Goals Goal(s): Decrease discomfort, Improve function Activity Recommendations Activity Limitations: resume your previous activity . Instructions / Follow-Up Instructions / Follow-Up Medications: - CIPRO: take twice a day for 19 more doses, next dose due this evening Right sided pyelonephritis: typically we treat for 14 days total, you have had 4 days here in hospital culture grew E coli, was sensitive to all antibiotics right sided pain should continue to subside, can use Tylenol, Advil as needed for pain FOLLOW UP - [facility] in 7-10 days Current Hospital Diet Patient's current hospital diet: Regular Diet Discharge Diet Recommended Diet: Regular Diet Pending Studies Studies pending at discharge: no Medical Emergencies . Who to Call and When: Medical Emergencies: If at any time you feel your situation is an emergency, please call 911 immediately. . Non-Emergent Contact Non-Emergency issues call your: Primary Care Provider Call Non-Emergent contact if: you have a fever, your pain is worsening, you have any medication questions . . "Provider Documentation" section prepared by Jeremiah Keys. . [place] Drug Monitoring Program Search Results: no issues identified
[2017-06-22 10:51] VITALS: BP 107/71; PULSE 69; TEMP 36.9; O2SAT 97
--- NOTE | 2017-06-22 22:16 | Discharge Summary ---
Discharge Summary Date of Service Jun 22, 2017. Discharge Summary Admission Date: Jun 18, 2017 at 14:46 Discharge Date: Jun 22, 2017 Discharge Disposition: Home Principal Diagnosis: Right pyelonephritis Problems/Secondary Diagnoses: Constipation Bipolar disorder Hypothyroidism Procedures: none Consultations: none Medication Reconciliation New Medications: Ciprofloxacin (Ciprofloxacin HCl) 500 Mg Tab 500 MG PO BID, #19 TAB 0 Refills Continued Medications: Calcium/Vitamin D (Os-Angel 500 Plus D) Tab 1 TAB PO BID, TAB Cyclobenzaprine Hcl (Flexeril) 10 Mg Tab 10 MG PO Q8 PRN for Muscle Spasms, #21 TAB Lamotrigine (Lamictal) 100 Mg Tab 100 MG PO DAILY, TAB Levonorgestrel (Iud) (Mirena) 20 Mcg/24 Hr Iud 20 MCG INT UTER UD Levothyroxine Sodium (Synthroid) 50 Mcg Tab 50 MCG PO DAILY Lisdexamfetamine Dimesylate (Vyvanse) 50 Mg Cap 50 MG PO DAILY, CAP [place] Carbonate ([place] Carbonate) 300 Mg Tab 300 MG PO QAM, TAB [place] Carbonate ([place] Carbonate) 300 Mg Tab 600 MG PO HS, TAB Discharge Exam Patient doing well, had two bowel movements last night and another today, pain resolved. Eating well. No fever or chills. Stated that she was ready to go home, just wanted to make sure she got her Vyvanse back from pharmacy. Review of Systems: Constitutional: No fever, No chills, No sweats, No weight loss, No weakness , No fatigue, No problem reported Eyes: No worsening of vision, No eye pain, No redness, No discharge, No diplopia, No problem reported ENT: No hearing loss, No unusual epistaxis, No nasal symptoms, No sore throat, No tinnitus, No dental problems, No trouble swallowing, No problem reported Respiratory: No cough, No sputum, No wheezing, No shortness of breath, No dyspnea on exertion, No dyspnea at rest, No hemoptysis, No problem reported Cardiovascular: No chest pain, No orthopnea, No PND, No edema, No claudication, No palpitations, No problem reported Abdomen: No pain, No nausea, No vomiting, No diarrhea, No constipation, No GI bleeding, No problem reported Musculoskeletal: No joint pain, No muscle pain, No swelling, No calf pain, No problem reported Genitourinary - Female: No dysuria, No urinary frequency, No urinary urgency , No urinary incontinence, No urinary retention, No hematuria Neurologic: No memory loss, No paralysis, No weakness, No numbness/tingling , No vertigo, No balance problems, No problem reported Psychiatric: No depression symptoms, No anhedonism, No anxiety, No insomnia , No substance abuse, No problem reported Endocrine: No fatigue, No excessive thirst, No excessive urination, No problem reported Hematologic / Lymphatic: No abnormal bleeding/bruising, No clotting problems , No swollen lymph nodes, No night sweats, No problem reported Integumentary: No rash, No itch, No new/changing skin lesions, No color change, No bleeding, No problem reported Physical Exam: General Appearance: WD/WN, no apparent distress Eyes: normal inspection, EOMI, sclerae normal ENT: normal ENT inspection, hearing grossly normal, pharynx normal Neck: supple, no adenopathy, no JVD, trachea midline Respiratory/Chest: chest non-tender, lungs clear, normal breath sounds, no respiratory distress, no accessory muscle use Cardiovascular: regular rate, rhythm, no edema, no gallop, no JVD, no murmur , normal peripheral pulses Abdomen / GI: normal bowel sounds, non tender, soft, no organomegaly Extremities: normal inspection, no calf tenderness, normal capillary refill , no pedal edema, normal range of motion, pelvis stable Neurologic/Psychiatric: 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, no motor/sensory deficits , alert, normal mood/affect, normal reflexes, oriented x 3 Skin: normal color, warm/dry, no rash Lymphatic: no adenopathy Hospital Course 26 yo female with right sided pyelonephritis with sepsis on presentation - Pyelonephritis: cultures with pansensitive E coli treated initially with Rocephin, changes to Cipro on the day of discharge will complete 10 more days on PO for total of 14 days of treatment afebrile, WBC normal, no further flank pain initially with signs of sepsis but resolved quickly with IV antibiotics and fluids - Constipation: resolved with ambulating in halls and hydration - Bipolar disorder: stable, continue Vyvanse, [place] - Hypothyroidism: continue Synthroids d/c to home, follow up with [facility] Total Time Spent: Less than 30 minutes This includes examination of the patient, discharge planning, medication reconciliation, and communication with other providers. Discharge Instructions Please refer to the electronic Patient Visit Report (Discharge Instructions) for additional information. Follow-Up [facility] in one week Additional Copies To [facility]
== END 2017-06-22 12:00 | disposition home or self-care (01) | DRG 872 ==
LOC: C.EDB 07:24 → C.MS2W 14:46 → ENRESERV 15:14
PROVIDERS: ADMIT Internal Medicine; ATTEND Internal Medicine
DX: A41.9 Sepsis, unspecified organism (principal); N12 Tubulo-interstitial nephritis, not specified as acute or chronic; B96.20 Unspecified Escherichia coli [E. coli] as the cause of diseases classified elsewhere; K59.00 Constipation, unspecified; F31.9 Bipolar disorder, unspecified; E03.9 Hypothyroidism, unspecified; Z97.5 Presence of (intrauterine) contraceptive device; Z79.899 Other long term (current) drug therapy

== ENCOUNTER → 2017-10-30 | Outpatient (CLI) | payer OTHER ==
[~2017-10-30] MED LIST changes: +CALC500C70 PO; -CLON0.5T3 PO; +CPR500 PO; +CYCL10TA6 PO; +LAMO100T16 PO; +LEVO1IUD2 INT UTER; +LISD50CA4 PO; +LITH300T2 PO; -RISP3TAB12 PO; +SYN50 PO
--- NOTE | 2017-10-30 10:06 | DIAGNOSTIC IMAGING REPORT ---
(KATHIE/BLAD)RETROPERITON COMP HISTORY: HISTORY: Tract infection N39.0 Recurrent [id number] COMPARISON: None. FINDINGS: Right kidney: Maximum dimension 11.3 cm. No evidence for hydronephrosis. Normal corticomedullary differentiation and cortical thickness. Left kidney: Maximum dimension 11.5 cm. No evidence for hydronephrosis. Slight fullness of the left renal pelvis possibly on the basis of a extrarenal pelvis. Normal corticomedullary differentiation and cortical thickness. Bladder: No bladder wall thickening. The bilateral ureteral jets were identified. IMPRESSION: Normal renal ultrasound. The above report was generated using voice recognition software. It may contain grammatical, syntax or spelling errors. Electronically signed by: James Duqeu M.D. 10/30/2017 10:04 AM Dictated Date/Time: 10/30/2017 10:03 AM
== END | disposition home or self-care (01) ==
LOC: C.ULTR 09:27
PROVIDERS: ATTEND Urology
DX: N39.0 Urinary tract infection, site not specified (principal)

== ENCOUNTER 2025-02-24 20:37 | Inpatient (IN) ==
--- NOTE | 2025-02-24 21:10 | Emergency Department Note ---
History of Present Illness General Chief complaint: Back Injury/Pain Stated complaint: LOWER BACK PAIN DOC REFERRAL Time Seen by Provider: 02/24/25 20:47 History of Present Illness Maximum Pain Intensity: 9 This is a 34-year-old female that presents to the emergency department via private vehicle with complaints of "right low back pain". The patient notes that about a week ago she began with right low back pain. No trauma. No injury. She notes associated nausea and has vomiting at times but notes history of gastroparesis and this is not new. She is concerned because she has a history of pyelonephritis and today's presentation feels similar. She denies any pain radiating into the legs. She denies any loss of control of bowel or bladder. No numbness or tingling in the genital area. No weakness in the legs. She is able to ambulate. Pain worsened today therefore prompting arrival. Current pain 11/30. Home Medications Medication Instructions Recorded Confirmed Type ondansetron 4 mg disintegrating 4 mg PO Q12H PRN Nausea 07/10/21 12/21/24 History tablet dextroamphetamine-amphetamine 15 7.5 - 15 mg PO DAILY PRN stress 08/11/21 12/21/24 History mg tablet etc..\\ medical marijuana 1 dose PO UD PRN Anxiety 08/15/21 12/21/24 History dextromethorphan IR 45 1 tab PO BID 03/02/23 03/20/23 History mg-bupropion ER 105 mg biphasic tablet (Auvelity) prazosin 2 mg capsule 2 mg PO HS 03/02/23 12/21/24 History alprazolam 0.5 mg tablet 0.5 mg PO DAILY PRN 12/21/24 12/21/24 History amitriptyline 100 mg tablet 100 mg PO DAILY 12/21/24 12/21/24 History amitriptyline 75 mg tablet 75 mg PO DAILY 12/21/24 12/21/24 History dextromethorphan IR 45 1 tab PO BID 12/21/24 12/21/24 History mg-bupropion ER 105 mg biphasic tablet (Auvelity) famotidine 10 mg tablet 10 mg PO BID 12/21/24 12/21/24 History hydroxyzine HCl 50 mg tablet 50 mg PO .QD 12/21/24 12/21/24 History levothyroxine 50 mcg tablet 50 mcg PO DAILY #100 tabs 12/21/24 12/21/24 Rx propranolol 10 mg tablet 10 mg PO .qd 12/21/24 12/21/24 History Allergies Allergy/AdvReac Type Severity Reaction Status Date / Time artificial orange flavoring Allergy Intermediate Hives Uncoded 12/21/24 10:57 neoprene Allergy Mild Rash Uncoded 12/21/24 10:57 Past Med/Surg History Problem List (Updated 02/25/25 @ 00:02 by Ed Hendricks PA-C) Acute right-sided low back pain (Acute) Post-operative pain Encounter for pre-operative examination Pre-operative cardiovascular examination, valvular heart disease Pre-operative cardiovascular examination, supraventricular arrhythmia Palpitations Chronic pelvic pain in female Abdominal pain Hypnotic dependence Insomnia Unintentional weight loss Refractory nausea and vomiting Gastroparesis Hypothyroidism Attention deficit disorder (ADD) Depression Anxiety Mitral valve prolapse (Chronic) Bipolar disorder (Chronic) Medical History (Updated 02/25/25 @ 00:02 by Ed Hendricks PA-C) Eating disorder pt denies Hx of acute pyelonephritis 2013>hospitalized Hypothyroidism Post traumatic stress disorder (PTSD) Mitral valve prolapse followed by Dr. Green Anxiety and depression History of asthma as a child/no active inhaler Medical marijuana use for gastroparesis/anxiety Gastroparesis Attention deficit disorder (ADD) Endometriosis Hedy's thyroiditis Irregular menses Surgical History Nausea and vomiting after administration of anesthetic agent History of esophagogastroduodenoscopy (EGD) History of wisdom tooth extraction H/O colonoscopy (05/2018) History of tooth extraction Family History Mother Family history of diabetes mellitus Clotting disorder Diabetes Heart disease Hypertension Grandfather Cancer Grandmother Stroke Other No family history of adverse response to anesthesia Denies family history of Ovarian cancer Crohn's disease Breast cancer Colorectal cancer Ulcerative colitis Social History Smoking Status: Never smoker Tobacco Type: Cigarettes Second Hand Exposure: Yes (parents smoked); Hx Alcohol Use: No Hx Substance Use: No (medical marijuana card issued today ) Preferred Language: Somali Communication Ability: Effective Advertising Assistant Required: No Beliefs That Will Affect Care: None marital status: Single Current Living Situation: Significant Other Current Living Situation Comment: Lives with boyfriend and roommate current occupational status: employed 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 Feels Safe at Home: Yes Diet: other Diet Comment: low fiber during the past year weight has: other Assistive Devices: None Review of Systems A total of 10 systems reviewed and were otherwise negative Physical Exam Vital Signs Vital Signs - 24 hr 02/24/25 20:41 02/24/25 21:10 02/24/25 21:37 Temperature 36.5 C Temperature Source Temporal Artery Scan Pulse Rate 107 H 95 H Pulse Rate [Apical] Respiratory Rate 20 Respiratory Effort / Characteristics Non-Labored Spontaneous Respiratory Depth Normal Respiratory Pattern Regular Blood Pressure 203/95 H Blood Pressure [Right Arm] Blood Pressure Mean 131 Blood Pressure Mean [Right Arm] Blood Pressure Position Sitting Pulse Oximetry 100 94 Oxygen Delivery Method Room Air Room Air Sepsis Recent Fever Within 48 Hours No Sepsis New/Unexplained Change in Mental Status No Sepsis Action Taken by Nursing No Action Required 02/24/25 21:58 Temperature Temperature Source Pulse Rate Pulse Rate [Apical] 100 H Respiratory Rate 18 Respiratory Effort / Characteristics Respiratory Depth Respiratory Pattern Blood Pressure Blood Pressure [Right Arm] 122/80 Blood Pressure Mean Blood Pressure Mean [Right Arm] 94 Blood Pressure Position Pulse Oximetry 94 Oxygen Delivery Method Room Air Sepsis Recent Fever Within 48 Hours Sepsis New/Unexplained Change in Mental Status Sepsis Action Taken by Nursing VITAL SIGNS - Vital signs and nursing notes were reviewed. Hypertensive, otherwise stable and afebrile. GENERAL -34-year-old female appearing her stated age who is in no acute distress but appears to be in pain. Communicates well with provider and answers questions appropriately. SKIN - Without rashes. HEAD - NC/AT. EYES - clera anicteric. NECK - Neck with FROM. No nuchal rigidity. LUNGS - CTA CARDIAC - RRR ABDOMEN - Abdominal contour normal without pulsations or visible masses. BS normoactive all four quadrants. No tenderness, palpable masses, hepatosplenomegaly, or ascites noted. MUSCULOSKELETALreproducible tenderness overlying the right low back area within the paraspinous musculature of the L-spine. No spinous processes tenderness. EXTREMITIES - No clubbing or peripheral cyanosis. +5/5 strength noted in UE/LE bilaterally. NEUROLOGIC - Cranial nerves II through XII grossly intact. PSYCH -alert, oriented and pleasant on exam Course Administered Medications Discontinued Medications Hydromorphone HCl (Hydromorphone Inj 1 Mg/Ml Syringe) 1 mg IV NOW STA Stop: 02/24/25 21:11 Last Admin: 02/24/25 21:25 Dose: 1 mg Documented By: TATIANNA Ioversol (Optiray 320 100ml) 90 ml IV ONCE ONE Stop: 02/24/25 22:11 Last Admin: 02/24/25 22:11 Dose: 90 ml Documented By: CARLTON Ketorolac Tromethamine (Ketorolac Tromethamine 15 Mg/Ml Vial) 10 mg IV NOW ONE Stop: 02/24/25 21:11 Last Admin: 02/24/25 21:23 Dose: 10 mg Documented By: TATIANNA Medical Decision Making Laboratory Data 02/24/25 20:57 02/24/25 20:57 Lab Results 02/24/25 Range/Units 20:57 WBC 10.83 H (4.8-10.8) K/ul RBC 4.40 (4.20-5.40) M/uL Hgb 12.5 (12.0-16.0) g/dL Hct 37.6 (37.0-47.0) % MCV 85.5 (80.0-100.0) fL MCH 28.4 (25.0-34.0) pg MCHC 33.2 (32.0-36.0) g/dL RDW Std Deviation 38.4 (36.4-46.3) fL RDW Coeff of Kavita 12.2 (11.5-14.5) % Plt Count 384 (130-400) K/uL MPV 9.7 (9.4-12.4) fL Immature Gran % (Auto) 0.6 % Neut % (Auto) 60.5 % Lymph % (Auto) 25.6 % [place] % (Auto) 9.3 % Eos % (Auto) 3.4 % Baso % (Auto) 0.6 % Neut # (Auto) 6.54 H (1.40-6.50) K/uL Lymph # (Auto) 2.77 (1.20-3.40) K/uL [place] # (Auto) 1.01 H (0.11-0.59) K/uL Eos # (Auto) 0.37 (0.00-0.50) K/uL Baso # (Auto) 0.07 (0.00-0.20) K/uL Immature Gran # (Auto) 0.07 (0.01-0.20) K/uL PT 10.3 (9.0-12.0) Seconds INR 1.0 (0.9-1.1) APTT 26 (21-31) Seconds PTT Ratio 1.0 Sodium 136 (136-145) mmol/L Potassium 4.0 (3.5-5.1) mmol/L Chloride 101 (98-107) mmol/L Carbon Dioxide 26 (21-32) mmol/L Anion Gap 9 (3-11) BUN 19 (6-23) mg/dl Creatinine 0.98 (0.6-1.2) mg/dl Est Cr Clr Drug Dosing 100.6 ml/min eGFR 78.16 BUN/Creatinine Ratio 19.4 (10-20) Glucose 83 (70-99(Fasting)) mg/dl Calcium 9.2 (8.6-10.3) mg/dl Total Bilirubin 0.2 (0.2-1.0) mg/dl AST 19 (13-39) U/L ALT 17 (7-52) U/L Alkaline Phosphatase 72 (34-104) U/L Total Protein 8.1 (6.0-8.3) gm/dl Albumin 3.9 (3.4-5.0) gm/dl Globulin 4.2 H (2.5-4.0) gm/dl Albumin/Globulin Ratio 0.9 (0.9-2) Procalcitonin < 0.02 (0-0.5) ng/ml HCG, Qual Negative (Negative) Urine Color Yellow Urine Appearance Clear (Clear) Urine pH 5.5 (4.5-7.5) Ur Specific [place] 1.021 (1.000-1.030) Urine Protein Negative (Negative) Urine Glucose (UA) Negative (Negative) Urine Ketones Trace H (Negative) Urine Blood 1+ H (Negative) Urine Nitrite Negative (Negative) Urine Bilirubin Negative (Negative) Urine Urobilinogen Negative (Negative) Ur Leukocyte Esterase Negative (Negative) Urine WBC (Auto) 0-5 (0-5) /hpf Urine RBC (Auto) 11-20 H (0-2) /hpf U Hyaline Cast (Auto) 0-2 (0-2) /lpf U Epithel Cells (Auto) 3-5 H (0-2) /hpf Urine Bacteria (Auto) None Seen (None Seen) Urine Comment Imaging Data Radiologist's Impression: Abdomen/Pelvis CT 02/24/25 21:12 Exam(s): CT ABDOMEN + PELVIS With Contrast IV Amt: 90 ml optiray 320 EXAM: CT Abdomen and Pelvis With Intravenous Contrast CLINICAL HISTORY: Reason for exam: R sided back pain. TECHNIQUE: Axial computed tomography images of the abdomen and pelvis with intravenous contrast. CTDI is 28.02 mGy and DLP is 1444.5 mGy-cm. Automated exposure control was utilized for the study. A dose lowering technique was utilized adhering to the principles of ALARA. CONTRAST: Patient received 90 ml optiray 320 of IV contrast COMPARISON: 08/11/2021. FINDINGS: Lung bases: No consolidation. ABDOMEN: Liver: No mass. Gallbladder and bile ducts: No calcified stones. No ductal dilation. Pancreas: No mass. No ductal dilation. Spleen: No splenomegaly. Adrenals: The right adrenal gland is unremarkable. There is a 1 cm nodule left adrenal gland.. Kidneys and ureters: No solid mass. No hydronephrosis. Stomach and bowel: The stomach is distended containing retained foodstuffs. The colon is distended containing air and stool. There may be thickening of the cota of the sigmoid colon and rectum.. PELVIS: Appendix: Unremarkable CT scan appearance noted the appendix.. Bladder: No calculi are noted within the bladder.. Reproductive: There is a 3 cm lucency in the right adnexa.. ABDOMEN and PELVIS: Intraperitoneal space: No free air. No significant fluid collection. Bones/joints: No acute fracture. No dislocation. Soft tissues: Unremarkable. Vasculature: No abdominal aortic aneurysm. Lymph nodes: No enlarged lymph nodes. IMPRESSION: There may be thickening of the cota of the sigmoid colon and rectum.. This may be due to under distention. Cannot exclude colitis. A 1 cm nodule in the left adrenal gland may represent an adenoma. There is a possible 3 cm right adnexal cyst. Electronically signed by: Jordi Lipscomb MD 02/24/25 23:19 PM MDM Narrative Patient was seen and evaluated as above in room B03. Review was performed of nursing notes and vital signs. I did review pertinent previous visits and patient history. After obtaining a thorough history and physical examination the above work up was performed. Patient presents to us today for evaluation of right low back pain x 1 week. No trauma. No injury. The patient denies lower extremity weakness, bowel or bladder incontinence, numbness or tingling in the genital region. Options of care were discussed with the patient. IV access was established. Patient medicated here with IV Toradol, IV Dilaudid. She was reevaluated with tremendous improvement. Labs were drawn. Mild leukocytosis 10.83. No anemia. Coags normal. No evidence of kidney or liver failure. hCG negative. Procalcitonin within normal range. Urinalysis reveals no evidence of infection. CT scan abdomen/pelvis obtained following review of benefit versus risk with the patient. Case signed out to RUTHY Munguia at 2300 hrs. on 02/25/2025, shift change pending CT scan result. Please refer to further documentation regarding her stay. GCS: 15 In the evaluation and treatment of this patient the following differential diagnoses were entertained: Kidney stone, pyelonephritis, diverticulitis, appendicitis, torsion, lumbar strain, sprain, cauda equina, among others Impression & Plan Acute right-sided low back pain Discharge Plan Visit Data Chief Complaint: Back Injury/Pain Stated Complaint: LOWER BACK PAIN DOC REFERRAL ED Provider: Dudley Soto ED Midlevel Provider: Lizett Munguia Discharge Problem: Acute right-sided low back pain Patient Disposition: Still a Patient Condition: Good Forms Stand Alone Forms: [email or web address] Prescriptions Prescriptions: No Action ondansetron 4 mg tablet,disintegrating 4 mg PO Q12H PRN (Reason: Nausea) medical marijuana 1 dose PO UD PRN (Reason: Anxiety) Patient Comments: takes oral/inh form propranolol 10 mg tablet 10 mg PO .qd Auvelity 45-105 mg tablet,IR,delayed rel,biphasic 1 tab PO BID Rx Instructions: administer at least 8 hours apart famotidine 10 mg tablet 10 mg PO BID amitriptyline 100 mg tablet 100 mg PO DAILY amitriptyline 75 mg tablet 75 mg PO DAILY hydroxyzine HCl 50 mg tablet 50 mg PO .QD alprazolam 0.5 mg tablet 0.5 mg PO DAILY PRN levothyroxine 50 mcg tablet 50 mcg PO DAILY Qty: 100 3RF Rx Instructions: Pt needs labs and appt for additional refills dextroamphetamine-amphetamine 15 mg tablet 7.5 - 15 mg PO DAILY PRN (Reason: stress etc..\\) prazosin 2 mg Capsule 2 mg PO HS Auvelity 45-105 mg Tablet,Ir,Delayed Rel,Biphasic 1 tab PO BID Referrals Referrals: Daisha Rodriguez MD [Physician] -
[2025-02-24] MEDS: KETOROLAC TROMETHAMINE 15 MG/ML VIAL IV ONE (21:23)
[2025-02-24] MEDS: HYDROmorphone INJ 1 MG/ML SYRINGE IV STA (21:25)
[2025-02-24 21:39] LABS: Appearance Urine Clear (Clear); Bacteria Urine Automated None Seen (None Seen); Cast Urine Automated 0-2 /lpf (0-2); Glucose Urine UA Negative (Negative); WBC Urine Automated 0-5 /hpf (0-5)
[2025-02-24 21:45] LABS: Pregnancy Test, Serum Negative (Negative)
[2025-02-24 21:48] LABS: Hematocrit (blood only) 37.6 % (37.0-47.0); Hemoglobin 12.5 g/dL (12.0-16.0); Immature Granulocytes # (auto) 0.07 K/uL (0.01-0.20); Immature Granulocytes % (auto) 0.6 %; Mean Corpuscular Hemoglobin 28.4 pg (25.0-34.0); Mean Corpuscular Volume 85.5 fL (80.0-100.0); Platelet Count 384 K/uL (130-400); RDW Standard Deviation 38.4 fL (36.4-46.3); Red Blood Count 4.40 M/uL (4.20-5.40); White Blood Count 10.83 K/ul (4.8-10.8)
[2025-02-24 21:53] LABS: Alanine Aminotransferase 17.0 U/L (7-52); Albumin Globulin Ratio 0.9 (0.9-2); Albumin Level 3.9 gm/dl (3.4-5.0); Alkaline Phosphatase 72.0 U/L (34-104); Anion Gap 9.0 (3-11); Bilirubin,Total 0.2 mg/dl (0.2-1.0); Blood Urea Nitrogen 19.0 mg/dl (6-23); Calcium 9.2 mg/dl (8.6-10.3); Carbon Dioxide 26.0 mmol/L (21-32); Chloride 101.0 mmol/L (98-107); Creatinine Clr Calc Pharmacy 100.6 ml/min; Globulin 4.2 gm/dl (2.5-4.0); Glucose 83.0 mg/dl (70-99(Fasting)); Potassium 4.0 mmol/L (3.5-5.1); Sodium 136.0 mmol/L (136-145); Total Protein 8.1 gm/dl (6.0-8.3)
[2025-02-24] MEDS: OPTIRAY 320 100ml IV ONE (22:11)
[2025-02-24 22:12] LABS: INR 1.0 (0.9-1.1); Partial Thromboplastin Time 26 Seconds (21-31); Prothrombin Time 10.3 Seconds (9.0-12.0)
--- NOTE | 2025-02-24 23:20 | CT Scan Report ---
Exam(s): CT ABDOMEN + PELVIS With Contrast IV Amt: 90 ml optiray 320 EXAM: CT Abdomen and Pelvis With Intravenous Contrast CLINICAL HISTORY: Reason for exam: R sided back pain. TECHNIQUE: Axial computed tomography images of the abdomen and pelvis with intravenous contrast. CTDI is 28.02 mGy and DLP is 1444.5 mGy-cm. Automated exposure control was utilized for the study. A dose lowering technique was utilized adhering to the principles of ALARA. CONTRAST: Patient received 90 ml optiray 320 of IV contrast COMPARISON: 08/11/2021. FINDINGS: Lung bases: No consolidation. ABDOMEN: Liver: No mass. Gallbladder and bile ducts: No calcified stones. No ductal dilation. Pancreas: No mass. No ductal dilation. Spleen: No splenomegaly. Adrenals: The right adrenal gland is unremarkable. There is a 1 cm nodule left adrenal gland.. Kidneys and ureters: No solid mass. No hydronephrosis. Stomach and bowel: The stomach is distended containing retained foodstuffs. The colon is distended containing air and stool. There may be thickening of the cota of the sigmoid colon and rectum.. PELVIS: Appendix: Unremarkable CT scan appearance noted the appendix.. Bladder: No calculi are noted within the bladder.. Reproductive: There is a 3 cm lucency in the right adnexa.. ABDOMEN and PELVIS: Intraperitoneal space: No free air. No significant fluid collection. Bones/joints: No acute fracture. No dislocation. Soft tissues: Unremarkable. Vasculature: No abdominal aortic aneurysm. Lymph nodes: No enlarged lymph nodes. IMPRESSION: There may be thickening of the cota of the sigmoid colon and rectum.. This may be due to under distention. Cannot exclude colitis. A 1 cm nodule in the left adrenal gland may represent an adenoma. There is a possible 3 cm right adnexal cyst. Electronically signed by: Jordi Lipscomb MD 02/24/25 23:19 PM
[2025-02-25] MEDS: METHOCARBAMOL 500 MG TABLET PO STA (00:20)
--- NOTE | 2025-02-25 01:24 | Emergency Department Note ---
ED Visit Note Patient was signed out to me at change of shift from Ed Hendricks PA-C, pending CT imaging results, and patient disposition. I was able to evaluate the patient. The patient did have reproducible tenderness to palpation at the left lumbar paraspinous region. I provided the patient additional pain control, with topical Lidoderm, and oral methocarbamol, as the pain may be musculoskeletal in nature. We reviewed CT imaging together, we discussed findings noted per radiology. Findings are consistent with thickening of the cota of the sigmoid colon and rectum, possibly due to underdistention, however colitis cannot be excluded. CT imaging also notes a 1 cm nodule at the left adrenal gland, which may represent an adenoma, as well as a 3 cm possible right adnexal cyst. The patient's location of pain, pelvic ultrasound imaging was obtained, which shows right ovarian septated cyst demonstrating interval decrease in size since previous imaging. Also a hyperechoic structure near the fundus on the right side of the endometrium, which is likely calcification, and is stable on previous imaging. Upon reevaluation of the patient, she reported no improvement in symptoms, and worsening of her pain. Patient was ordered IV morphine, on discussion was had with the patient regarding the need for admission for intractable low back pain. The patient had previously received IV Dilaudid, and IV Toradol, with no improvement. Patient was admitted to the [facility] hospitalist group, for further evaluation. Please refer to their documentation for further patient workup and care. .
--- NOTE | 2025-02-25 02:46 | Ultrasound Report ---
EXAM: US pelvic complete CLINICAL HISTORY: Right flank pain TECHNIQUE: Ultrasound examination of the pelvis was performed in real time and duplex using transabdominal and transvaginal approaches. The vascular flow was evaluated using color flow and spectral analysis of the flow waveform. COMPARISON: Compared to the previous ultrasound pelvic study, dated 04/15/2018. FINDINGS: Uterus: Uterine size and morphology: The uterus measures about 7.7 x 2.6 x 3.6 cm. The uterus appears normal, anteverted, with homogeneous myometrium. A small echogenic structure near the fundus on the right side of the endometrium, measuring about 0.3 x 0.2 x 0.3 cm, is likely a calcification. No evidence of uterine masses, fibroids, or endometrial thickening. Endometrial stripe thickness: [6 mm]. Interval removal of the IUD. Ovaries: Right ovarian septated cyst / 2 separate simple cysts, measuring 3.2 x 3.5 x 2.3 cm, versus 5 x 3.9 x 5.6 cm at the previous study. Another right ovarian cyst measures 4.2 x 3.2 x 3.2 cm. Left ovary size: suboptimally seen; measures about 1.4 x 0.9 x 1 cm. Adnexa: No evidence of masses or lesions was seen. Bladder: No stones or masses were seen. IMPRESSION: 1. Right ovarian septated cysts demonstrate interval decrease in size. O-RADS 2. 2. Interval removal of the IUD. 3. A hypoechoic structure near the fundus on the right side of the endometrium, likely a calcification, is stable on the images. RECOMMENDATIONS: Clinical correlation with symptoms and further evaluation as indicated. O-RADS Category Findings Risk of Malignancy Management Recommendation 0 Incomplete evaluation N/A Complete the evaluation with additional imaging. 1 Normal findings, including simple cysts ( 3 cm premenopausal, 1 cm postmenopausal) 0% Routine follow-up or no follow-up. 2 Almost certainly benign (e.g., simple cysts ? 3 cm premenopausal, 1-3 cm postmenopausal) 1% Routine follow-up or no follow-up. 3 Low risk (e.g., unilocular cysts with a single thin septation) 1-10% Consider follow-up imaging or surgical evaluation based on clinical scenario. 4 Intermediate risk (e.g., multilocular cysts, solid components with low color score) 10-50% Surgical evaluation recommended. 5 High risk (e.g., irregular solid components with high color score) 50% Surgical evaluation recommended, consider oncology referral. Electronically signed by Jevno Crawley 02-25-2025 02:46 AM
[2025-02-25] MEDS: HYDROmorphone INJ 1 MG/ML SYRINGE IV STA (04:37)
[2025-02-25] MEDS ORDERED: ONDANSETRON INJ 2 MG/ML 2 ML VIAL IV PRN (04:41)
--- NOTE | 2025-02-25 05:04 | History & Physical Report ---
Date of Service February 25, 2025 Assessment & Plan (1) Sacroiliac joint pain: (2) Lumbar spine pain: (3) Attention deficit disorder (ADD): (4) Bipolar disorder: Plan The patient is a 34-year-old female with a past medical history including chronic pelvic pain, hypnotic dependence, refractory nausea and vomiting, gastroparesis, hypothyroidism, ADD, depression with, anxiety, mitral valve prolapse, and bipolar disorder. She presents to the emergency department with the complaint of intolerable central and right lower back pain. She reports about 8 days ago she slipped doing some lifting and developed some right lower back pain. She reports that has been staying about the same until the past 24 hours, when she developed a more significant area of right low back pain, that she points to her sacroiliac area. She presented to the ED because she was concerned about the possibility of her having pyelonephritis, she reports she had a normal urinalysis and normal CT scan in the past and was later diagnosed with pyelonephritis. She has no dysuria no hematuria no urinary frequency or urgency. Urinalysis is negative, CT scan is negative for pyelonephritis. CT scan does show maybe thickness of the sigmoid colon and rectum and possible colitis. Maybe shows a 1 cm left adrenal gland nodule. And possible 3 cm right adnexal cyst. Pelvic ultrasound shows a right ovarian septated cyst that is decreased in size compared to previous. IUD has been removed. And there is a right endometrial calcification. From the ED the patient was given following: Dilaudid 1 mg IV, Toradol 10 mg IV, Lidoderm patch, methocarbamol 500 mg p.o., Toradol 15 mg IV, and morphine 4 mg IV. She reports that the only thing that improved her pain was the Dilaudid 1 mg IV, and it lasted for 4 hours. Intractable low back pain/right SI joint pain/lumbosacral pain- On physical examination patient has significant tenderness over the lower lumbosacral spine and right SI joint. CT scan of the pelvis does not note any comment regarding lumbosacral or pelvis bone tissue. Ordering MRI of lumbosacral spine without contrast. Premedicate with Dilaudid 1 mg IV. Acetaminophen 600 mg by mouth every 6 hours as needed for mild pain or fever Dilaudid 0.5 mg IV every 6 hours as needed for moderate pain Dilaudid 1 mg IV every 6 hours as needed for severe pain Narcan IV per protocol as needed Zofran 4 mg IV every 6 hours as needed Consult Ortho Spine depending upon results of MRI ADD/Bipolar Disorder/Depression/Anxiety- Continue amitriptyline, hydroxyzine, prazosin, propranolol, as needed alprazolam Patient will bring in her own Auxelity Hold as needed Adderall GERD- Continue famotidine Hypothyroidism- Continue levothyroxine History of Present Illness Primary Care Provider: NO PCP The patient is a 34-year-old female with a past medical history including chronic pelvic pain, hypnotic dependence, refractory nausea and vomiting, gastroparesis, hypothyroidism, ADD, depression with, anxiety, mitral valve prolapse, and bipolar disorder. She presents to the emergency department with the complaint of intolerable central and right lower back pain. She reports about 8 days ago she slipped doing some lifting and developed some right lower back pain. She reports that has been staying about the same until the past 24 hours, when she developed a more significant area of right low back pain, that she points to her sacroiliac area. She presented to the ED because she was concerned about the possibility of her having pyelonephritis, she reports she had a normal urinalysis and normal CT scan in the past and was later diagnosed with pyelonephritis. She has no dysuria no hematuria no urinary frequency or urgency. Urinalysis is negative, CT scan is negative for pyelonephritis. CT scan does show maybe thickness of the sigmoid colon and rectum and possible colitis. Maybe shows a 1 cm left adrenal gland nodule. And possible 3 cm right adnexal cyst. Pelvic ultrasound shows a right ovarian septated cyst that is decreased in size compared to previous. IUD has been removed. And there is a right endometrial calcification. From the ED the patient was given following: Dilaudid 1 mg IV, Toradol 10 mg IV, Lidoderm patch, methocarbamol 500 mg p.o., Toradol 15 mg IV, and morphine 4 mg IV. She reports that the only thing that improved her pain was the Dilaudid 1 mg IV, and it lasted for 4 hours. Allergies Allergy/AdvReac Type Severity Reaction Status Date / Time artificial orange flavoring Allergy Intermediate Hives Uncoded 12/21/24 10:57 neoprene Allergy Mild Rash Uncoded 12/21/24 10:57 Home Medications Medication Instructions Recorded Confirmed Type ondansetron 4 mg disintegrating 4 mg PO Q12H PRN Nausea 07/10/21 12/21/24 History tablet dextroamphetamine-amphetamine 15 7.5 - 15 mg PO DAILY PRN stress 08/11/21 12/21/24 History mg tablet etc..\ medical marijuana 1 dose PO UD PRN Anxiety 08/15/21 12/21/24 History dextromethorphan IR 45 1 tab PO BID 03/02/23 03/20/23 History mg-bupropion ER 105 mg biphasic tablet (Auvelity) prazosin 2 mg capsule 2 mg PO HS 03/02/23 12/21/24 History alprazolam 0.5 mg tablet 0.5 mg PO DAILY PRN 12/21/24 12/21/24 History amitriptyline 100 mg tablet 100 mg PO DAILY 12/21/24 12/21/24 History amitriptyline 75 mg tablet 75 mg PO DAILY 12/21/24 12/21/24 History dextromethorphan IR 45 1 tab PO BID 12/21/24 12/21/24 History mg-bupropion ER 105 mg biphasic tablet (Auvelity) famotidine 10 mg tablet 10 mg PO BID 12/21/24 12/21/24 History hydroxyzine HCl 50 mg tablet 50 mg PO .QD 12/21/24 12/21/24 History levothyroxine 50 mcg tablet 50 mcg PO DAILY #100 tabs 12/21/24 12/21/24 Rx propranolol 10 mg tablet 10 mg PO .qd 12/21/24 12/21/24 History Past Med/Surg History Problem List (Updated 02/25/25 @ 05:29 by Artemio Sorensen MD) Lumbar spine pain Sacroiliac joint pain Intractable low back pain Acute right-sided low back pain (Acute) Post-operative pain Encounter for pre-operative examination Pre-operative cardiovascular examination, valvular heart disease Pre-operative cardiovascular examination, supraventricular arrhythmia Palpitations Chronic pelvic pain in female Abdominal pain Hypnotic dependence Insomnia Unintentional weight loss Refractory nausea and vomiting Gastroparesis Hypothyroidism Attention deficit disorder (ADD) Depression Anxiety Mitral valve prolapse (Chronic) Bipolar disorder (Chronic) Medical History (Updated 02/25/25 @ 05:29 by Artemio Sorensen MD) Eating disorder pt denies Hx of acute pyelonephritis 2013>hospitalized Hypothyroidism Post traumatic stress disorder (PTSD) Mitral valve prolapse followed by Dr. Green Anxiety and depression History of asthma as a child/no active inhaler Medical marijuana use for gastroparesis/anxiety Gastroparesis Attention deficit disorder (ADD) Endometriosis Hedy's thyroiditis Irregular menses Surgical History Nausea and vomiting after administration of anesthetic agent History of esophagogastroduodenoscopy (EGD) History of wisdom tooth extraction H/O colonoscopy (05/2018) History of tooth extraction Family History Mother Family history of diabetes mellitus Clotting disorder Diabetes Heart disease Hypertension Grandfather Cancer Grandmother Stroke Other No family history of adverse response to anesthesia Denies family history of Ovarian cancer Crohn's disease Breast cancer Colorectal cancer Ulcerative colitis Social History Smoking Status: Never smoker Tobacco Type: Cigarettes Second Hand Exposure: Yes (parents smoked); Hx Alcohol Use: No Hx Substance Use: No (medical marijuana card issued today ) Preferred Language: Indonesian Communication Ability: Effective Casting Technician Required: No Beliefs That Will Affect Care: None marital status: Single Current Living Situation: Significant Other Current Living Situation Comment: Lives with boyfriend and roommate current occupational status: employed 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 Feels Safe at Home: Yes Diet: other Diet Comment: low fiber during the past year weight has: other Assistive Devices: None Review of Systems Review of Systems: The patient denies chest pain, palpitations, shortness of breath, dyspnea on exertion, cough, lower extremity swelling, sore throat, fevers, chills, sweats, weight change, fatigue, nausea, vomiting, diarrhea , constipation, abdominal pain, pelvic pain, blood in urine or stool, dysuria, urinary frequency or urgency, lightheadedness, dizziness, headache, memory loss, loss of consciousness, rash, abnormal bruising or bleeding, imbalance, focal or generalized weakness, numbness or tingling in arms or legs, generalized arthralgias or myalgias, neck pain, or night sweats. The review of systems is otherwise negative other than for that already noted above, and at least 10 systems have been reviewed. She Physical Exam Physical Exam: The patient is awake, alert and oriented 3, well developed and well nourished, normocephalic and atraumatic, standing and walking around, in mild to moderate acute distress due to low back pain HEENT--PERRL, EOMI, mucous membranes and oropharynx normal Neck--supple. No JVD. No bruits. Thyroid normal, trachea midline, no adenopathy. Heart--normal S1 and S2. No murmurs, rubs or gallops. Lungs--clear bilaterally, no respiratory distress, no accessory muscle use. Abdomen--normal bowel sounds and soft. Nontender. Nondistended. Obese Extremities--no cyanosis or clubbing. No edema. There are good distal pulses b/l. Dermatologic--normal skin turgor, normal color, no abnormal lymph nodes, no rash. Neurologic--cranial nerves II through XII grossly intact. Rheumatologic--significant pain to palpation over lumbosacral spine, and upper part of SI joint on the right. Psychiatric--normal affect. Results & Data Results & Data Vital Signs (Past 12 Hours) Vital Signs Temp Pulse Pulse Resp BP BP Pulse Ox 02/24/25 21:58 100 H 18 122/80 94 02/24/25 21:37 95 H 02/24/25 21:10 94 02/24/25 20:41 36.5 C 107 H 20 203/95 H 100 O2 Del Method 02/24/25 21:58 Room Air 02/24/25 21:37 02/24/25 21:10 Room Air 02/24/25 20:41 Room Air Laboratory Results Laboratory Results WBC 10.83 K/ul (4.8-10.8) H 02/24/25 20:57 RBC 4.40 M/uL (4.20-5.40) 02/24/25 20:57 Hgb 12.5 g/dL (12.0-16.0) 02/24/25 20:57 Hct 37.6 % (37.0-47.0) 02/24/25 20:57 MCV 85.5 fL (80.0-100.0) 02/24/25 20:57 MCH 28.4 pg (25.0-34.0) 02/24/25 20:57 MCHC 33.2 g/dL (32.0-36.0) 02/24/25 20:57 RDW Std Deviation 38.4 fL (36.4-46.3) 02/24/25 20:57 RDW Coeff of Kavita 12.2 % (11.5-14.5) 02/24/25 20:57 Plt Count 384 K/uL (130-400) 02/24/25 20:57 MPV 9.7 fL (9.4-12.4) 02/24/25 20:57 Immature Gran % (Auto) 0.6 % 02/24/25 20:57 Neut % (Auto) 60.5 % 02/24/25 20:57 Lymph % (Auto) 25.6 % 02/24/25 20:57 Stark % (Auto) 9.3 % 02/24/25 20:57 Eos % (Auto) 3.4 % 02/24/25 20:57 Baso % (Auto) 0.6 % 02/24/25 20:57 Neut # (Auto) 6.54 K/uL (1.40-6.50) H 02/24/25 20:57 Lymph # (Auto) 2.77 K/uL (1.20-3.40) 02/24/25 20:57 Stark # (Auto) 1.01 K/uL (0.11-0.59) H 02/24/25 20:57 Eos # (Auto) 0.37 K/uL (0.00-0.50) 02/24/25 20:57 Baso # (Auto) 0.07 K/uL (0.00-0.20) 02/24/25 20:57 Immature Gran # (Auto) 0.07 K/uL (0.01-0.20) 02/24/25 20:57 PT 10.3 Seconds (9.0-12.0) 02/24/25 20:57 INR 1.0 (0.9-1.1) 02/24/25 20:57 APTT 26 Seconds (21-31) 02/24/25 20:57 PTT Ratio 1.0 02/24/25 20:57 Sodium 136 mmol/L (136-145) 02/24/25 20:57 Potassium 4.0 mmol/L (3.5-5.1) 02/24/25 20:57 Chloride 101 mmol/L (98-107) 02/24/25 20:57 Carbon Dioxide 26 mmol/L (21-32) 02/24/25 20:57 Anion Gap 9 (3-11) 02/24/25 20:57 BUN 19 mg/dl (6-23) 02/24/25 20:57 Creatinine 0.98 mg/dl (0.6-1.2) 02/24/25 20:57 Est Cr Clr Drug Dosing 100.6 ml/min 02/24/25 20:57 eGFR 78.16 02/24/25 20:57 BUN/Creatinine Ratio 19.4 (10-20) 02/24/25 20: Glucose 83 mg/dl (70-99(Fasting)) 02/24/25 20:57 Calcium 9.2 mg/dl (8.6-10.3) 02/24/25 20:57 Total Bilirubin 0.2 mg/dl (0.2-1.0) 02/24/25 20:57 AST 19 U/L (13-39) 02/24/25 20:57 ALT 17 U/L (7-52) 02/24/25 20:57 Alkaline Phosphatase 72 U/L (34-104) 02/24/25 20:57 Total Protein 8.1 gm/dl (6.0-8.3) 02/24/25 20:57 Albumin 3.9 gm/dl (3.4-5.0) 02/24/25 20:57 Globulin 4.2 gm/dl (2.5-4.0) H 02/24/25 20:57 Albumin/Globulin Ratio 0.9 (0.9-2) 02/24/25 20:57 Procalcitonin < 0.02 ng/ml (0-0.5) 02/24/25 20:57 HCG, Qual Negative (Negative) 02/24/25 20:57 Urine Color Yellow 02/24/25 20:57 Urine Appearance Clear (Clear) 02/24/25 20:57 Urine pH 5.5 (4.5-7.5) 02/24/25 20:57 Ur Specific Cassel 1.021 (1.000-1.030) 02/24/25 20: Urine Protein Negative (Negative) 02/24/25 20:57 Urine Glucose (UA) Negative (Negative) 02/24/25 20:57 Urine Ketones Trace (Negative) H 02/24/25 20:57 Urine Blood 1+ (Negative) H 02/24/25 20:57 Urine Nitrite Negative (Negative) 02/24/25 20:57 Urine Bilirubin Negative (Negative) 02/24/25 20:57 Urine Urobilinogen Negative (Negative) 02/24/25 20:57 Ur Leukocyte Esterase Negative (Negative) 02/24/25 20:57 Urine WBC (Auto) 0-5 /hpf (0-5) 02/24/25 20:57 Urine RBC (Auto) 11-20 /hpf (0-2) H 02/24/25 20:57 U Hyaline Cast (Auto) 0-2 /lpf (0-2) 02/24/25 20:57 U Epithel Cells (Auto) 3-5 /hpf (0-2) H 02/24/25 20:57 Urine Bacteria (Auto) None Seen (None Seen) 02/24/25 20:57 Urine Comment 02/24/25 20:57 Impressions Abdomen/Pelvis CT 02/24/25 21:12 Exam(s): CT ABDOMEN + PELVIS With Contrast IV Amt: 90 ml optiray 320 EXAM: CT Abdomen and Pelvis With Intravenous Contrast CLINICAL HISTORY: Reason for exam: R sided back pain. TECHNIQUE: Axial computed tomography images of the abdomen and pelvis with intravenous contrast. CTDI is 28.02 mGy and DLP is 1444.5 mGy-cm. Automated exposure control was utilized for the study. A dose lowering technique was utilized adhering to the principles of ALARA. CONTRAST: Patient received 90 ml optiray 320 of IV contrast COMPARISON: 08/11/2021. FINDINGS: Lung bases: No consolidation. ABDOMEN: Liver: No mass. Gallbladder and bile ducts: No calcified stones. No ductal dilation. Pancreas: No mass. No ductal dilation. Spleen: No splenomegaly. Adrenals: The right adrenal gland is unremarkable. There is a 1 cm nodule left adrenal gland.. Kidneys and ureters: No solid mass. No hydronephrosis. Stomach and bowel: The stomach is distended containing retained foodstuffs. The colon is distended containing air and stool. There may be thickening of the cota of the sigmoid colon and rectum.. PELVIS: Appendix: Unremarkable CT scan appearance noted the appendix.. Bladder: No calculi are noted within the bladder.. Reproductive: There is a 3 cm lucency in the right adnexa.. ABDOMEN and PELVIS: Intraperitoneal space: No free air. No significant fluid collection. Bones/joints: No acute fracture. No dislocation. Soft tissues: Unremarkable. Vasculature: No abdominal aortic aneurysm. Lymph nodes: No enlarged lymph nodes. IMPRESSION: There may be thickening of the cota of the sigmoid colon and rectum.. This may be due to under distention. Cannot exclude colitis. A 1 cm nodule in the left adrenal gland may represent an adenoma. There is a possible 3 cm right adnexal cyst. Electronically signed by: Jordi Lipscomb MD 02/24/25 23:19 PM Pelvis Ultrasound 02/24/25 23:43 EXAM: US pelvic complete CLINICAL HISTORY: Right flank pain TECHNIQUE: Ultrasound examination of the pelvis was performed in real time and duplex using transabdominal and transvaginal approaches. The vascular flow was evaluated using color flow and spectral analysis of the flow waveform. COMPARISON: Compared to the previous ultrasound pelvic study, dated 04/15/2018. FINDINGS: Uterus: Uterine size and morphology: The uterus measures about 7.7 x 2.6 x 3.6 cm. The uterus appears normal, anteverted, with homogeneous myometrium. A small echogenic structure near the fundus on the right side of the endometrium, measuring about 0.3 x 0.2 x 0.3 cm, is likely a calcification. No evidence of uterine masses, fibroids, or endometrial thickening. Endometrial stripe thickness: [6 mm]. Interval removal of the IUD. Ovaries: Right ovarian septated cyst / 2 separate simple cysts, measuring 3.2 x 3.5 x 2.3 cm, versus 5 x 3.9 x 5.6 cm at the previous study. Another right ovarian cyst measures 4.2 x 3.2 x 3.2 cm. Left ovary size: suboptimally seen; measures about 1.4 x 0.9 x 1 cm. Adnexa: No evidence of masses or lesions was seen. Bladder: No stones or masses were seen. IMPRESSION: 1. Right ovarian septated cysts demonstrate interval decrease in size. O-RADS 2. 2. Interval removal of the IUD. 3. A hypoechoic structure near the fundus on the right side of the endometrium, likely a calcification, is stable on the images. RECOMMENDATIONS: Clinical correlation with symptoms and further evaluation as indicated. O-RADS Category Findings Risk of Malignancy Management Recommendation 0 Incomplete evaluation N/A Complete the evaluation with additional imaging. 1 Normal findings, including simple cysts ( 3 cm premenopausal, 1 cm postmenopausal) 0% Routine follow-up or no follow-up. 2 Almost certainly benign (e.g., simple cysts ? 3 cm premenopausal, 1-3 cm postmenopausal) 1% Routine follow-up or no follow-up. 3 Low risk (e.g., unilocular cysts with a single thin septation) 1-10% Consider follow-up imaging or surgical evaluation based on clinical scenario. 4 Intermediate risk (e.g., multilocular cysts, solid components with low color score) 10-50% Surgical evaluation recommended. 5 High risk (e.g., irregular solid components with high color score) 50% Surgical evaluation recommended, consider oncology referral. Electronically signed by Jevon Crawley 02-25-2025 02:46 AM Code Status & VTE Plan Code Status Full code VTE Prophylaxis Plan VTE Prophylaxis will be ordered: Yes PG Care Time/CCT Total # of Minutes Spent Total Time Spent with Patient: Total time spent is greater than 50% in coordination of care (as documented) at patient's floor/unit and/or counseling patient: Coding Level of Care Code 26558 INT INP/OBS CARE 3/75MIN Diagnoses Sacroiliac joint pain M53.3 Lumbar spine pain M54.50 Attention deficit disorder (ADD) F98.8 Bipolar disorder F31.9
[2025-02-25] MEDS ORDERED: ALBUT/IPRATROP 3MG/0.5MG NEB 3 ML VIAL NEB PRN (05:28)
[2025-02-25] MEDS ORDERED: NALOXONE HCL 0.4 MG/1 ML VIAL/CARP IV PRN (05:31)
[2025-02-25] MEDS ORDERED: HYDROmorphone INJ 1 MG/ML SYRINGE IV PRN (05:31)
[2025-02-25] MEDS: LIDOCAINE 5% 1 PATCH TD STA (05:48)
[2025-02-25] MEDS: MoRPHine SULFATE 4 MG/ML 1 ML CARP\\VIAL IV STA (05:49)
[2025-02-25] MEDS: KETOROLAC TROMETHAMINE 15 MG/ML VIAL IV ONE (05:49)
[2025-02-25] MEDS: LEVOTHYROXINE SODIUM 50 MCG TABLET PO SCH (06:27)
[2025-02-25] MEDS: ONDANSETRON INJ 2 MG/ML 2 ML VIAL IV PRN (07:11)
[2025-02-25] MEDS: FAMOTIDINE 10 MG TABLET PO SCH (09:03)
[2025-02-25] MEDS: PROPRANOLOL HCL 10 MG TAB PO SCH (09:04)
[2025-02-25] MEDS: HYDROmorphone INJ 0.5 MG/0.5 ML SYR IV PRN (09:07)
--- NOTE | 2025-02-25 09:13 | Magnetic Resonance Report ---
EXAM: MR lumbar spine wo con CLINICAL HISTORY: intractable low back pain TECHNIQUE: Different pulse sequences were performed in different planes for the lumbar spine without contrast. Images were sent through PACS for diagnostic interpretation. COMPARISON: X-ray dated 06/18/2017 reviewed. FINDINGS: Vertebral Alignment: Sacralized L5. Normal alignment of the lumbar spine without evidence of fracture or malalignment. No evidence of scoliosis is observed. Marrow signals are normal. Vertebral Bodies and Intervertebral Discs: Normal vertebral body height; no fracture identified. Hemangioma measuring 12 mm in the L1 vertebral body. Intervertebral discs demonstrate normal hydration. [id number] analysis: T12-L1: There is no focal disc pathology, spinal canal stenosis, or neural foraminal stenosis. L1-L2: There is no focal disc pathology, spinal canal stenosis, or neural foraminal stenosis. L2-L3: Diffuse disc bulge of 1.8 mm indenting the ventral thecal sac with no bilateral neural foraminal stenosis. No spinal canal stenosis. L3-L4: Diffuse disc bulge of 2.6 mm indenting the ventral thecal sac with no neural foraminal stenosis. No spinal canal stenosis. L4-L5: Diffuse disc bulge of 2.8 mm indenting the ventral thecal sac with mild bilateral neural foraminal stenosis. No spinal canal stenosis. L5-S1: Diffuse disc bulge of 1.8 mm indenting the ventral thecal sac with no bilateral neural foraminal stenosis. No spinal canal stenosis. Spinal Cord and Nerve Roots: Conus medullaris terminates at the L1 level without abnormality. Nerve roots appear unremarkable bilaterally. The lower thoracic spinal cord, conus medullaris, and cauda equina nerve roots are unremarkable. 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 Soft Tissues: Edema in the posterior subcutaneous plane of the lumbar region. The rest of the paraspinal soft tissues appear normal. IMPRESSION: 1. No evidence of fracture; stable. 2. Multilevel diffuse disc bulge indenting the ventral thecal sac. 3. 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 4. Edema in the posterior subcutaneous plane of the lumbar region. 5. Sacralized L5. Electronically signed by Jevon Crawley 02-25-2025 09:13 AM
[2025-02-25] MEDS ORDERED: Nursing to Pharmacy Communication SCH (10:00)
[2025-02-25] MEDS: AMITRIPTYLINE HCL 25 MG TAB PO SCH ×2 (10:07→20:01)
[2025-02-25] MEDS: AMITRIPTYLINE HCL 100 MG TAB PO SCH ×2 (10:07→20:01)
[2025-02-25] MEDS: ACETAMINOPHEN 325 MG TAB PO PRN (12:00)
[2025-02-25] MEDS: HYDROmorphone INJ 1 MG/ML SYRINGE IV PRN (14:39)
[2025-02-25] MEDS: PROCHLORPERAZINE 10 MG in SYRINGE 8 ML IV PRN (15:46)
[2025-02-25] MEDS: PRAZOSIN HCL 1 MG CAP PO SCH (20:01)
[2025-02-25] MEDS: REMOVE LIDODERM PATCH SCH (20:02)
[2025-02-26 08:29] LABS: Hematocrit (blood only) 33.9 % (37.0-47.0); Hemoglobin 11.6 g/dL (12.0-16.0); Immature Granulocytes # (auto) 0.03 K/uL (0.01-0.20); Immature Granulocytes % (auto) 0.5 %; Mean Corpuscular Hemoglobin 29.4 pg (25.0-34.0); Mean Corpuscular Volume 86.0 fL (80.0-100.0); Platelet Count 290 K/uL (130-400); RDW Standard Deviation 38.5 fL (36.4-46.3); Red Blood Count 3.94 M/uL (4.20-5.40); White Blood Count 6.59 K/ul (4.8-10.8)
[2025-02-26 08:46] LABS: Albumin Level 3.8 gm/dl (3.4-5.0); Anion Gap 6.0 (3-11); Blood Urea Nitrogen 18.0 mg/dl (6-23); Calcium 8.5 mg/dl (8.6-10.3); Carbon Dioxide 28.0 mmol/L (21-32); Chloride 102.0 mmol/L (98-107); Creatinine Clr Calc Pharmacy 108.4 ml/min; Glucose 85.0 mg/dl (70-99(Fasting)); Magnesium 2.1 mg/dl (1.7-2.4); Potassium 3.7 mmol/L (3.5-5.1); Sodium 136.0 mmol/L (136-145)
--- NOTE | 2025-02-26 09:31 | Hospitalist Progress Note ---
Date of Service February 26, 2025 Assessment & Plan (1) Sacroiliac joint pain: Plan: -MRI L-spine negative for any acute pathology -still with intractable pain -appears to have severe lumbar muscle spasm -added valium prn, robaxin -con't diluaidid prn -PT -zofran/compazine (2) Attention deficit disorder (ADD): Plan: Continue amitriptyline, hydroxyzine, prazosin, propranolol, as needed alprazolam (3) Bipolar disorder: Plan: Continue amitriptyline, hydroxyzine, prazosin, propranolol, as needed alprazolam (4) Hypothyroidism: Plan: Continue levothyroxine Plan The patient is a 34-year-old female with a past medical history including chronic pelvic pain, hypnotic dependence, refractory nausea and vomiting, gastroparesis, hypothyroidism, ADD, depression with, anxiety, mitral valve prolapse, and bipolar disorder. She presents to the emergency department with the complaint of intolerable central and right lower back pain. She reports about 8 days ago she slipped doing some lifting and developed some right lower back pain. She reports that has been staying about the same until the past 24 hours, when she developed a more significant area of right low back pain, that she points to her sacroiliac area. She presented to the ED because she was concerned about the possibility of her having pyelonephritis, she reports she had a normal urinalysis and normal CT scan in the past and was later diagnosed with pyelonephritis. She has no dysuria no hematuria no urinary frequency or urgency. Urinalysis is negative, CT scan is negative for pyelonephritis. CT scan does show maybe thickness of the sigmoid colon and rectum and possible colitis. Maybe shows a 1 cm left adrenal gland nodule. And possible 3 cm right adnexal cyst. Pelvic ultrasound shows a right ovarian septated cyst that is decreased in size compared to previous. IUD has been removed. And there is a right endometrial calcification. From the ED the patient was given following: Dilaudid 1 mg IV, Toradol 10 mg IV, Lidoderm patch, methocarbamol 500 mg p.o., Toradol 15 mg IV, and morphine 4 mg IV. She reports that the only thing that improved her pain was the Dilaudid 1 mg IV, and it lasted for 4 hours. Admission and Anticipated Discharge Date Admission Date: February 25, 2025 Subjective Pt still complaining of intractable back pain and nausea. Pt has palpable right lower lumbar muscle spasm. Review of Systems Review of Systems: CONST: Negative for fever, body aches and chills. HENT: Negative for neck pain/stiffness, headache, congestion, sore throat, swelling. EYES: Negative for discharge/pain or vision changes. RESP: Negative for cough/hemoptysis and shortness of breath. CV: Negative chest pain, difficulty breathing, palpitations. ABD: Negative pain, +nausea, vomiting. : Negative increase frequency, dysuria, blood in urine or stool. MUSC:+back pain SKIN: Negative rash, lesions/sores. NEURO: Negative headache, dizziness, weakness. Physical Exam Physical Exam: GENERAL APPEARANCE NAD, activity normal for age, well developed/ well nourished, no cyanosis, pallor, or diaphoresis. EYES lids/conjunctiva normal. EARS/NOSE/THROAT Mucous membranes moist, nares normal, lips/teeth normal uvula midline without oral pharyngeal erythema, exudate or swelling TMs normal bilaterally. No lymphangitis/lymphedema. HEAD/NECK normocephalic atraumatic, no facial trauma, neck is supple. RESPIRATORY respiratory effort normal, speaks in full sentences, no tripod position, no accessory muscle use. Lungs clear to auscultation without rhonchi, wheezes, rales CARDIAC Regular rate and rhythm, no edema. ABDOMINAL Soft, ND/NT. No evidence of fluid wave. No pulsatile masses on exam, rebound tenderness, Thomas sign or pain over Mcburney's point. MUSCLES/EXTREMITIES No abnormal range of motion, no swelling. SKIN Warm, pink and dry. No rashes, dermatoses, petechiae or lesions. NEUROLOGICAL Speech is clear and appropriate. Normal level of consciousness. Gait and coordination are normal. 5/5 strength in all extremities. PSYCH Normal mood and affect. Judgement/competence is appropriate Results & Data Results & Data Vital Signs (Past 12 Hours) Vital Signs Temp Pulse Pulse Resp BP Pulse Ox Pulse Ox 02/26/25 07:56 36.5 C 93 H 20 116/68 95 02/26/25 07:08 82 02/26/25 05:28 96 02/26/25 03:41 36.3 C L 88 20 120/58 L 92 02/25/25 23:48 36.4 C L 98 H 20 125/71 93 12/06/25 22:13 94 H O2 Del Method O2 Del Method 02/26/25 07:56 Room Air 02/26/25 07:08 02/26/25 05:28 Room Air 02/26/25 03:41 Room Air 02/25/25 23:48 Room Air 02/25/25 22:13 PG Care Time/CCT Total # of Minutes Spent Total Time Spent with Patient: Total time spent is greater than 50% in coordination of care (as documented) at patient's floor/unit and/or counseling patient: Coding Level of Care Code 97208 SUB INP/OBS CARE 2/35MIN Diagnoses Sacroiliac joint pain M53.3 Attention deficit disorder (ADD) F98.8 Bipolar disorder F31.9 Hypothyroidism E03.9
[2025-02-26] MEDS: LIDOCAINE 5% 1 PATCH TD SCH (10:31)
[2025-02-26] MEDS: METHOCARBAMOL 500 MG TABLET PO SCH (13:14)
[2025-02-26] MEDS: REMOVE LIDODERM PATCH SCH (21:18)
[2025-02-27 06:53] LABS: Hematocrit (blood only) 38.1 % (37.0-47.0); Hemoglobin 12.8 g/dL (12.0-16.0); Immature Granulocytes # (auto) 0.03 K/uL (0.01-0.20); Immature Granulocytes % (auto) 0.5 %; Mean Corpuscular Hemoglobin 29.0 pg (25.0-34.0); Mean Corpuscular Volume 86.4 fL (80.0-100.0); Platelet Count 298 K/uL (130-400); RDW Standard Deviation 38.4 fL (36.4-46.3); Red Blood Count 4.41 M/uL (4.20-5.40); White Blood Count 6.26 K/ul (4.8-10.8)
[2025-02-27] MEDS ORDERED: INFLUENZA VACC TS2025-26(6m+)/PF (IIV3) 0.5mL Syr IM ONE (07:04)
[2025-02-27 08:06] LABS: Albumin Level 4.0 gm/dl (3.4-5.0); Anion Gap 9.0 (3-11); Calcium 8.8 mg/dl (8.6-10.3); Carbon Dioxide 25.0 mmol/L (21-32); Chloride 103.0 mmol/L (98-107); Magnesium 2.2 mg/dl (1.7-2.4); Potassium 3.9 mmol/L (3.5-5.1); Sodium 137.0 mmol/L (136-145)
[2025-02-27 08:11] LABS: Blood Urea Nitrogen 16.0 mg/dl (6-23); Creatinine Clr Calc Pharmacy 99.3 ml/min; Glucose 76.0 mg/dl (70-99(Fasting))
--- NOTE | 2025-02-27 10:16 | Hospitalist Progress Note ---
"Date of Service February 27, 2025 Assessment & Plan (1) Sacroiliac joint pain: (2) Gastroparesis: (3) Attention deficit disorder (ADD): (4) Bipolar disorder: (5) Hypothyroidism: Plan The patient is a 34-year-old female with a past medical history including chronic pelvic pain, hypnotic dependence, refractory nausea and vomiting, gastroparesis, hypothyroidism, ADD, depression with, anxiety, mitral valve prolapse, and bipolar disorder. She presents to the emergency department with the complaint of intolerable central and right lower back pain. She reports about 8 days ago she slipped doing some lifting and developed some right lower back pain. Initally concerned for Pyelonephritis but this was ruled out with normal UA and CT scan. CT scan does show maybe thickness of the sigmoid colon and rectum and possible colitis. Maybe shows a 1 cm left adrenal gland nodule. And possible 3 cm right adnexal cyst. Pelvic ultrasound shows a right ovarian septated cyst that is decreased in size compared to previous. IUD has been removed. And there is a right endometrial calcification. Admitted for pain control #SI joint pain - MRI L-spine negative for any acute pathology. Pain seems very MSK in nature with severe spasms Pain control: scheduled robaxin, prn dilaudid, prn Valium. Add PO oxycodone today to work towards discharge Supportive care: heat, ice, encourage ambulation with tolerated. PT Will add IV mag today to help with muscle relaxation - continue to monitor on tele with multiple sedating Meds (valium, narcotic pain medical, home evalvil and vistaril0 #Gastroparesis - worsening nausea and vomiting compared to baseline, could be worse from stopping medical marijuana while inpatient Continue zofran and promethazine which work well for her at home AVOID reglan as pt reports makes her suicidal Electrolytes WNL #ADD | Bipolar disordered #Hypothyroid - Continue levothyroxine Dispo: continue inpatient stay for pain control, requiring IV medications DVT proh: add lovenox family updated at bedside 02/27 Admission and Anticipated Discharge Date Admission Date: February 25, 2025 Subjective Patient seen sitting in the chair, support person present at bedside. APpears uncomfortable just worked with PT, reports pain started radiating don her leg yesterday. actively spasms, feels best when she is leaning forward. overall does feel like she is slowly starting to improve reports nausea at baseline from her gastroparesis, uses zofran and promethazine at home as regjd makes her suicidal Tele SR 80s Review of Systems Review of Systems: All systems reviewed & are unremarkable except as noted in Subjective Physical Exam Physical Exam: General: NAD, VS as above, sitting up in the chair, appears uncomfortable Resp: normal respiratory effort, lungs clear to auscultation CV: RRR, no murmur, Abd: non tender, soft Extremities: Moves all extremities, no edema back: does have spams while sitting, pain with any light palpation to paraspinal muscles, no spinal tenderness Neuro: A&O x3, Results & Data Results & Data Vital Signs (Past 12 Hours) Vital Signs Temp Pulse Pulse Resp BP Pulse Ox Pulse Ox 02/27/25 08:38 98.0 F 117 H 19 132/102 H 99 02/27/25 07:14 90 02/27/25 05:00 94 02/27/25 02:57 98.1 F 92 H 18 98/58 L 95 02/26/25 22:49 97.7 F 105 H 18 105/60 95 O2 Del Method O2 Del Method 02/27/25 08:38 Room Air 02/27/25 07:14 02/27/25 05:00 Room Air 02/27/25 02:57 Room Air 02/26/25 22:49 Room Air Laboratory Results CBC and chemistry reviewed PG Care Time/CCT Total # of Minutes Spent Total Time Spent with Patient: Total time spent is greater than 50% in coordination of care (as documented) at patient's floor/unit and/or counseling patient: Coding Level of Care Code 34197 SUB INP/OBS CARE 3/50MIN Diagnoses Sacroiliac joint pain M53.3 Gastroparesis K31.84 Attention deficit disorder (ADD) F98.8 Bipolar disorder F31.9 Hypothyroidism E03.9"
[2025-02-27] MEDS: MAGNESIUM SULFATE / D5W 1 GM/100 ML BAG IV SCH (10:58)
[2025-02-27] MEDS: PROMETHAZINE HCL 25 MG TAB PO PRN (14:49)
[2025-02-27 19:44] VITALS: RESP 18
[2025-02-28 07:40] VITALS: BP 119/73; PULSE 109; TEMP 97.7; O2SAT 96
[2025-02-28] MEDS: ENOXAPARIN INJ 40 MG/0.4 ML SYR SQ SCH (08:01)
--- NOTE | 2025-02-28 10:31 | Discharge Summary ---
"Discharge Summary Date of Service February 28, 2025 Principal Dx & Hospital Course #1 = Principal Diagnosis (1) Sacroiliac joint pain: (2) Gastroparesis: (3) Attention deficit disorder (ADD): (4) Bipolar disorder: (5) Hypothyroidism: Plan The patient is a 34-year-old female with a past medical history including chronic pelvic pain, hypnotic dependence, refractory nausea and vomiting, gastroparesis, hypothyroidism, ADD, depression with, anxiety, mitral valve prolapse, and bipolar disorder. She presents to the emergency department with the complaint of intolerable central and right lower back pain. She reports about 8 days ago she slipped doing some lifting and developed some right lower back pain. Initally concerned for Pyelonephritis but this was ruled out with normal UA and CT scan. CT scan does show maybe thickness of the sigmoid colon and rectum and possible colitis. Maybe shows a 1 cm left adrenal gland nodule. And possible 3 cm right adnexal cyst. Pelvic ultrasound shows a right ovarian septated cyst that is decreased in size compared to previous. IUD has been removed. And there is a right endometrial calcification. Admitted for pain control #SI joint pain - MRI L-spine negative for any acute pathology. Pain seems very MSK in nature with severe spasms. Negative straight leg test. Given IV mag. Pain and mobility much improved today. Will discharge with scheduled robaxin, prn oxycodone and prn valium ( 5 tabs sent, instructed not to take with prn ativan). Continue supportive care with heat, ice and lidcoaine patch. Stable for discharge home, work note provided. #Gastroparesis - worsening nausea and vomiting compared to baseline, could be worse from stopping medical marijuana while inpatient. Continue zofran and promethazine which work well for her at home #ADD | Bipolar disorder - home meds continued #Hypothyroid - Continue levothyroxine Dispo:discharge to home today family updated at bedside 02/27 Notes For Next Care Provider Medication Changes From Visit course of robaxin Admission HPI Per Admitting Provider The patient is a 34-year-old female with a past medical history including chronic pelvic pain, hypnotic dependence, refractory nausea and vomiting, alice roparesis, hypothyroidism, ADD, depression with, anxiety, mitral valve prolapse, and bipolar disorder. She presents to the emergency department with the complaint of intolerable central and right lower back pain. She reports about 8 days ago she slipped doing some lifting and developed some right lower back pain. She reports that has been staying about the same until the past 24 hours, when she developed a more significant area of right low back pain, that she points to her sacroiliac area. She presented to the ED because she was concerned about the possibility of her having pyelonephritis, she reports she had a normal urinalysis and normal CT scan in the past and was later diagnosed with pyelonephritis. She has no dysuria no hematuria no urinary frequency or urgency. Urinalysis is negative, CT scan is negative for pyelonephritis. CT scan does show maybe thickness of the sigmoid colon and rectum and possible colitis. Maybe shows a 1 cm left adrenal gland nodule. And possible 3 cm right adnexal cyst. Pelvic ultrasound shows a right ovarian septated cyst that is decreased in size compared to previous. IUD has been removed. And there is a right endometrial calcification. From the ED the patient was given following: Dilaudid 1 mg IV, Toradol 10 mg IV, Lidoderm patch, methocarbamol 500 mg p.o., Toradol 15 mg IV, and morphine 4 mg IV. She reports that the only thing that improved her pain was the Dilaudid 1 mg IV, and it lasted for 4 hours. Discharge Exam General: NAD, VS as above, appears much more comfortable Resp: normal respiratory effort, lungs clear to auscultation CV: RRR, no murmur, Abd: normal bowel sounds, non tender, soft Extremities: Moves all extremities, negative straight leg raise on the right Back: significantly less tender today, able to move around independently in bed without evidence of worsening pain Neuro: A&O x3, Skin: intact, no lesions noted Discharge Plan Discharge Items Patient Disposition: Home - Self-Care Reason For Visit: INTRACTABLE LOW BACK PAIN Discharge Diagnosis: low back spasms Condition on Discharge: Good Activity: As commented below Activity Comment: gradually increase as tolerated Weightbearing: Full weightbearing Non-emergency contact: Primary Care Provider Call non-emergency contact if: you have any medication questions, your symptoms worsen and your temperature is above 101 Follow-up/Referrals: PCP,NO [Primary Care Provider] - Diet: Regular Addtl Attending Provider Instructions: Ms. Hayes, You were hospitalized after having worsening low back muscle spasm. Thankfully this has improved with muscle relaxants, lidocaine patch, heat and ice. You will be continued on robaxin (muscle relaxer) three times a day, as your start to feel better you can wean down to twice a day and then as needed. I have also sent in a few tabs of valium to help with severe spasms, please do not drive while taking this. Do NOT take at the same time as your as needed ativan. Continue gentle movement and stretching to help loosen the muscles. Heat and ice can also be helpful. If you found the lidocaine paches helpful, recommend purchasing these over the counter. Activity: You can do normal everyday activities as your body allows. Take rest breaks if you feel tired. Do not overexert. Stop activity if you have pain, shortness of breath or feel dizzy. Follow-up appointments: Make an appointment with your primary care physician within one week of discharge. A copy of this summary will be sent to them. Every time you see your primary care physician, or any other doctor, bring your medication list, and a list of questions. CONTACT YOUR PRIMARY CARE PROVIDER if you experience any of the following: Shortness of breath or difficulty breathing Fevers or chills Feeling tired with normal activity or experiencing dizziness or fainting Difficulty following your treatment plan, or difficulty taking medications CALL 911 OR GO TO THE EMERGENCY DEPARTMENT if you experience any of the following: Severe abdominal pain or nausea/vomiting Severe chest pain, or chest pain that radiates (moves) to your jaw or arm Sudden, severe shortness of breath or difficulty breathing Thank you for allowing us to participate in your care. Pending Studies at Discharge: No Stand-Alone Forms: My [facility], Work/School Release, Smoking Cessation Medications and DC Order Prescriptions: New methocarbamol 500 mg Tablet 500 mg PO TID 15 Days Qty: 45 0RF diazepam 5 mg Tablet 5 mg PO Q6H PRN (Reason: muscle spasm) Qty: 5 0RF oxycodone 5 mg Tablet 5 mg PO Q6H PRN (Reason: pain) 3 Days Qty: 12 0RF Continued ondansetron 4 mg tablet,disintegrating 8 mg PO Q8H PRN (Reason: Nausea) medical marijuana 1 dose PO UD PRN (Reason: Anxiety) Patient Comments: 02/25-unable to verify propranolol 10 mg tablet 10 mg PO .qd famotidine 10 mg tablet 40 mg PO BID amitriptyline 100 mg tablet 100 mg PO DAILY amitriptyline 75 mg tablet 75 mg PO DAILY hydroxyzine HCl 50 mg tablet 25 - 50 mg PO .QD alprazolam 0.5 mg tablet 0.5 mg PO DAILY PRN (Reason: Other) levothyroxine 50 mcg tablet 50 mcg PO DAILY Qty: 100 3RF Rx Instructions: Pt needs labs and appt for additional refills dextroamphetamine-amphetamine 15 mg tablet 7.5 - 15 mg PO DAILY PRN (Reason: stress etc..\\) prazosin 2 mg Capsule 2 mg PO HS Auvelity 45-105 mg Tablet,Ir,Delayed Rel,Biphasic 1 tab PO BID rabeprazole 20 mg tablet,delayed release (DR/EC) 20 mg PO DAILY Spravato 84 mg (28 mg x 3) spray,non-aerosol 84 mg INTRANASAL UD Discharge Orders: Discharge Order (Routine); Ordered 02/28/25 Ordered By: Madonna Dorantes/Other Patient Handouts: Methocarbamol Oral Tablet, ED Muscle Spasm Admission Data Admit Date/Time: 02/27/25 10:12 Attending Provider: Artie Dillon Admit Provider: Artemio Sorensen Primary Care Provider: PCP,NO Other Providers: Artemio Sorensen Hospital Stay Data Consultations 02/25/25 03:24 ED Decision to Admit Stat Diagnostic Imagining Performed Abdomen/Pelvis CT 02/24/25 21:12 Exam(s): CT ABDOMEN + PELVIS With Contrast IV Amt: 90 ml optiray 320 EXAM: CT Abdomen and Pelvis With Intravenous Contrast CLINICAL HISTORY: Reason for exam: R sided back pain. TECHNIQUE: Axial computed tomography images of the abdomen and pelvis with intravenous contrast. CTDI is 28.02 mGy and DLP is 1444.5 mGy-cm. Automated exposure control was utilized for the study. A dose lowering technique was utilized adhering to the principles of ALARA. CONTRAST: Patient received 90 ml optiray 320 of IV contrast COMPARISON: 08/11/2021. FINDINGS: Lung bases: No consolidation. ABDOMEN: Liver: No mass. Gallbladder and bile ducts: No calcified stones. No ductal dilation. Pancreas: No mass. No ductal dilation. Spleen: No splenomegaly. Adrenals: The right adrenal gland is unremarkable. There is a 1 cm nodule left adrenal gland.. Kidneys and ureters: No solid mass. No hydronephrosis. Stomach and bowel: The stomach is distended containing retained foodstuffs. The colon is distended containing air and stool. There may be thickening of the cota of the sigmoid colon and rectum.. PELVIS: Appendix: Unremarkable CT scan appearance noted the appendix.. Bladder: No calculi are noted within the bladder.. Reproductive: There is a 3 cm lucency in the right adnexa.. ABDOMEN and PELVIS: Intraperitoneal space: No free air. No significant fluid collection. Bones/joints: No acute fracture. No dislocation. Soft tissues: Unremarkable. Vasculature: No abdominal aortic aneurysm. Lymph nodes: No enlarged lymph nodes. IMPRESSION: There may be thickening of the cota of the sigmoid colon and rectum.. This may be due to under distention. Cannot exclude colitis. A 1 cm nodule in the left adrenal gland may represent an adenoma. There is a possible 3 cm right adnexal cyst. Electronically signed by: Jordi Lipscomb MD 02/24/25 23:19 PM Pelvis Ultrasound 02/24/25 23:43 EXAM: US pelvic complete CLINICAL HISTORY: Right flank pain TECHNIQUE: Ultrasound examination of the pelvis was performed in real time and duplex using transabdominal and transvaginal approaches. The vascular flow was evaluated using color flow and spectral analysis of the flow waveform. COMPARISON: Compared to the previous ultrasound pelvic study, dated 04/15/2018. FINDINGS: Uterus: Uterine size and morphology: The uterus measures about 7.7 x 2.6 x 3.6 cm. The uterus appears normal, anteverted, with homogeneous myometrium. A small echogenic structure near the fundus on the right side of the endometrium, measuring about 0.3 x 0.2 x 0.3 cm, is likely a calcification. No evidence of uterine masses, fibroids, or endometrial thickening. Endometrial stripe thickness: [6 mm]. Interval removal of the IUD. Ovaries: Right ovarian septated cyst / 2 separate simple cysts, measuring 3.2 x 3.5 x 2.3 cm, versus 5 x 3.9 x 5.6 cm at the previous study. Another right ovarian cyst measures 4.2 x 3.2 x 3.2 cm. Left ovary size: suboptimally seen; measures about 1.4 x 0.9 x 1 cm. Adnexa: No evidence of masses or lesions was seen. Bladder: No stones or masses were seen. IMPRESSION: 1. Right ovarian septated cysts demonstrate interval decrease in size. O-RADS 2. 2. Interval removal of the IUD. 3. A hypoechoic structure near the fundus on the right side of the endometrium, likely a calcification, is stable on the images. RECOMMENDATIONS: Clinical correlation with symptoms and further evaluation as indicated. O-RADS Category Findings Risk of Malignancy Management Recommendation 0 Incomplete evaluation N/A Complete the evaluation with additional imaging. 1 Normal findings, including simple cysts ( 3 cm premenopausal, 1 cm postmenopausal) 0% Routine follow-up or no follow-up. 2 Almost certainly benign (e.g., simple cysts ? 3 cm premenopausal, 1-3 cm postmenopausal) 1% Routine follow-up or no follow-up. 3 Low risk (e.g., unilocular cysts with a single thin septation) 1-10% Consider follow-up imaging or surgical evaluation based on clinical scenario. 4 Intermediate risk (e.g., multilocular cysts, solid components with low color score) 10-50% Surgical evaluation recommended. 5 High risk (e.g., irregular solid components with high color score) 50% Surgical evaluation recommended, consider oncology referral. Electronically signed by Jevon Crawley 02-25-2025 02:46 AM Lumbar Spine MRI 02/25/25 04:25 EXAM: MR lumbar spine wo con CLINICAL HISTORY: intractable low back pain TECHNIQUE: Different pulse sequences were performed in different planes for the lumbar spine without contrast. Images were sent through PACS for diagnostic interpretation. COMPARISON: X-ray dated 06/18/2017 reviewed. FINDINGS: Vertebral Alignment: Sacralized L5. Normal alignment of the lumbar spine without evidence of fracture or malalignment. No evidence of scoliosis is observed. Marrow signals are normal. Vertebral Bodies and Intervertebral Discs: Normal vertebral body height; no fracture identified. Hemangioma measuring 12 mm in the L1 vertebral body. Intervertebral discs demonstrate normal hydration. [id number] analysis: T12-L1: There is no focal disc pathology, spinal canal stenosis, or neural foraminal stenosis. L1-L2: There is no focal disc pathology, spinal canal stenosis, or neural foraminal stenosis. L2-L3: Diffuse disc bulge of 1.8 mm indenting the ventral thecal sac with no bilateral neural foraminal stenosis. No spinal canal stenosis. L3-L4: Diffuse disc bulge of 2.6 mm indenting the ventral thecal sac with no neural foraminal stenosis. No spinal canal stenosis. L4-L5: Diffuse disc bulge of 2.8 mm indenting the ventral thecal sac with mild bilateral neural foraminal stenosis. No spinal canal stenosis. L5-S1: Diffuse disc bulge of 1.8 mm indenting the ventral thecal sac with no bilateral neural foraminal stenosis. No spinal canal stenosis. Spinal Cord and Nerve Roots: Conus medullaris terminates at the L1 level without abnormality. Nerve roots appear unremarkable bilaterally. The lower thoracic spinal cord, conus medullaris, and cauda equina nerve roots are unremarkable. 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 Soft Tissues: Edema in the posterior subcutaneous plane of the lumbar region. The rest of the paraspinal soft tissues appear normal. IMPRESSION: 1. No evidence of fracture; stable. 2. Multilevel diffuse disc bulge indenting the ventral thecal sac. 3. 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 4. Edema in the posterior subcutaneous plane of the lumbar region. 5. Sacralized L5. Electronically signed by Jevon Crawley 02-25-2025 09:13 AM Pending Results Patient Have Any Pending Studies at Discharge: No Discharge Instructions Given to Patient (Per Discharging Provider) Ms. Hayes, You were hospitalized after having worsening low back muscle spasm. Thankfully this has improved with muscle relaxants, lidocaine patch, heat and ice. You will be continued on robaxin (muscle relaxer) three times a day, as your start to feel better you can wean down to twice a day and then as needed. I have also sent in a few tabs of valium to help with severe spasms, please do not drive while taking this. Do NOT take at the same time as your as needed ativan. Continue gentle movement and stretching to help loosen the muscles. Heat and ice can also be helpful. If you found the lidocaine paches helpful, recommend purchasing these over the counter. Activity: You can do normal everyday activities as your body allows. Take rest breaks if you feel tired. Do not overexert. Stop activity if you have pain, shortness of breath or feel dizzy. Follow-up appointments: Make an appointment with your primary care physician within one week of discharge. A copy of this summary will be sent to them. Every time you see your primary care physician, or any other doctor, bring your medication list, and a list of questions. CONTACT YOUR PRIMARY CARE PROVIDER if you experience any of the following: Shortness of breath or difficulty breathing Fevers or chills Feeling tired with normal activity or experiencing dizziness or fainting Difficulty following your treatment plan, or difficulty taking medications CALL 911 OR GO TO THE EMERGENCY DEPARTMENT if you experience any of the following: Severe abdominal pain or nausea/vomiting Severe chest pain, or chest pain that radiates (moves) to your jaw or arm Sudden, severe shortness of breath or difficulty breathing Thank you for allowing us to participate in your care. Total Time Total Time Spent Total Time Spent (In Minutes): Time spent day of discharge 40 minutes including direct patient care, medication reconciliation, documentation, review of labs and images, and coordination of care. Coding Level of Care Code 35933 INP/OBS DISCH >30 MIN Diagnoses Sacroiliac joint pain M53.3 Gastroparesis K31.84 Attention deficit disorder (ADD) F98.8 Bipolar disorder F31.9 Hypothyroidism E03.9"
== END 2025-02-28 11:42 | disposition home or self-care (01) | DRG 552 ==
LOC: EDINP 20:37 → ED 20:37 → SUATTDRO 02-25 04:50 → 2N 02-25 05:29